=== PATIENT | male | born 1960 | race Caucasian/White ===

== ENCOUNTER → 2017-08-21 09:55 | Outpatient (CLI) | payer OTHER, SELFPAY ==
[2017-08-21 12:22] LABS: Anion Gap 9 (5-15); BUN 10 mg/dL (7-18); BUN/Creat Ratio 9.8 RATIO (10-20); Calcium,Total 8.9 mg/dL (8.5-10.1); Chloride 103 mmol/L (98-107); Cholesterol 179 mg/dL (200); Creatinine, Serum 1.02 mg/dL (0.70-1.30); EST Glomerular Filtration Rate 80 mL/min (>60); Est Glom Filt Rate - Afr Amer 97 mL/min (>60); Glucose 82 mg/dL (74-106); High Density Lipoprotein 42 mg/dL; Potassium 3.9 mmol/L (3.5-5.1); Sodium Level 136 mmol/L (136-145); Triglycerides 108 mg/dL; Very Low Density Lipoprotein 22 mg/dL (5-40)
[2017-08-21 13:03] LABS: HIV - WCH Non-Reactive (Nonreactive); Vitamin D,25 Hydroxy 24.3 ng/mL (29.95-100.01)
[2017-08-21 14:03] LABS: Neisserai gonorrhoeae by PCR Negative (Negative); Probe Check PASS; Sample Adequacy Control PASS; Specimen Processing Control PASS
== END ==
PROVIDERS: Family Provider Family Medicine; PCP Family Medicine; Visit Provider Family Medicine
DX: Z00.00 Encounter for general adult medical examination without abnormal findings (principal); Z20.2 Contact with and (suspected) exposure to infections with a predominantly sexual mode of transmission; E55.9 Vitamin D deficiency, unspecified
CPT/HCPCS: 36415; 80048; 80061; 82306; 86703; 87591

== ENCOUNTER → 2018-06-28 08:42 | Outpatient (CLI) | payer OTHER, SELFPAY ==
[2018-06-28 09:55] LABS: ALB/GLOB Ratio 1.2 RATIO (0.9-2.4); AST(SGOT) 15 U/L (15-37); Alanine Aminotransfer ALT/SGPT 26 U/L (16-61); Alkaline Phosphatase 70 U/L (45-117); Anion Gap 5 (5-15); BUN 12 mg/dL (7-18); BUN/Creat Ratio 11.4 RATIO (10-20); Chloride 106 mmol/L (98-107); Cholesterol 196 mg/dL (200); Creatinine, Serum 1.05 mg/dL (0.70-1.30); EST Glomerular Filtration Rate 78 mL/min (>60); Est Glom Filt Rate - Afr Amer 94 mL/min (>60); Globulin 3.3 g/dL (2.2-4.2); Glucose 96 mg/dL (74-106); High Density Lipoprotein 43 mg/dL; Potassium 4.2 mmol/L (3.5-5.1); Protein, Total 7.3 g/dL (6.4-8.2); Sodium Level 140 mmol/L (136-145); Triglycerides 97 mg/dL; Very Low Density Lipoprotein 19 mg/dL (5-40)
[2018-06-29 11:15] LABS: Vitamin D,25 Hydroxy 36.8 ng/mL (29.95-100.01)
== END ==
PROVIDERS: Family Provider Family Medicine; PCP Family Medicine; Referring Provider Family Medicine; Visit Provider Family Medicine
DX: Z00.00 Encounter for general adult medical examination without abnormal findings (principal); E55.9 Vitamin D deficiency, unspecified
CPT/HCPCS: 36415; 80053; 80061; 82306

== ENCOUNTER → 2018-10-23 | Outpatient (CLI) | payer OTHER, SELFPAY ==
--- NOTE | 2018-10-23 06:55 | CT_ITS ---
STUDY: CT ABDOMEN AND PELVIS WITH CONTRAST REASON FOR EXAM: Male, 57 years old. Umbilical hernia. Mass in the mid abdomen. RADIATION DOSAGE (If Supplied By Facility): CTDIvol = ( 15.83 ) mGy, DLP = ( 1075.87 ) mGycm TECHNIQUE: Transaxial images were obtained from the dome of the diaphragm to the symphysis pubis with oral contrast. 100 IV/Oral Isovue 300 was administered. Sagittal and coronal images were reconstructed. Individualized dose optimization techniques were used for this CT. COMPARISON: None. FINDINGS: The visualized lung bases are unremarkable. The visualized portions of the heart are within normal limits. The liver is normal in size and contour. There are scattered small hypodensities, the largest measuring 4 mm diameter thought to represent small cysts. There is no enhancing mass. Normal gallbladder and extrahepatic biliary system. Without splenomegaly without mass. Normal pancreas. Normal bilateral adrenal glands. Normal right kidney. Normal left kidney. Normal bilateral ureters. Normal visualized stomach. Normal small intestine. Normal colon. The appendix is visualized and appears normal. Minimal atherosclerotic changes of the abdominal aorta. Normal inferior vena cava. Normal retroperitoneum. Normal urinary bladder. Normal prostate. No pelvic adenopathy. No free air or free fluid is seen within the peritoneal cavity. Normal abdominal wall. There is no visualized hernia. There is no mass in the soft tissues. There are diffuse degenerative changes of the visualized lumbar spine. CT/Abdomen/Pelvis WITH Contrast IMPRESSION: 1. No visualized hernia or mass. 2. Small hepatic cysts. 3. Atherosclerotic changes of the abdominal aorta. 4. Degenerative changes of the lumbar spine. Electronically Signed: Toni Anne DO at 16:53 EDT Tel [phone], Service support ,
== END | disposition home or self-care (01) ==
LOC: CT 06:54
PROVIDERS: Family Provider Family Medicine; PCP Family Medicine; Referring Provider Family Medicine; Visit Provider Family Medicine
DX: K42.9 Umbilical hernia without obstruction or gangrene (principal)
CPT/HCPCS: 74177; Q9967

== ENCOUNTER 2020-09-13 07:24 | Emergency (ER) | payer OTHER, SELFPAY ==
[2020-09-13 07:25] VITALS: BP 168/85; PULSE 77; RESP 16; TEMP 36.4; O2SAT 99; BMI 30.1
--- NOTE | 2020-09-13 07:34 | RAD_ITS ---
STUDY: X-RAY - LEFT WRIST REASON FOR EXAM: Male, 59 years old. pain TECHNIQUE: view(s) of the wrist were obtained. COMPARISON: None. FINDINGS: Normal visualized distal radius and ulna. Normal radiocarpal articulation. Normal distal radioulnar articulation. Normal carpal bones. Normal carpal articulations. Normal carpometacarpal articulation of the thumb. Normal second through fifth carpometacarpal articulations. Normal visualized metacarpal bones. The soft tissue structures are unremarkable. RAD/Wrist min 3 Views IMPRESSION: Normal x-ray examination of the wrist. Electronically Signed: Corazon Vivas, at 8:03 EDT Tel , Service support ,
--- NOTE | 2020-09-13 07:35 | EX.ED.UPPERE ---
HPI History of Present Illness Chief Complaint: Upper Extremity Injury Informant: patient Onset/Context/Timing Onset: Days Context: Gradual Onset Timing: Continuous Quality of Pain: Dull and Throbbing Current Severity: Moderate Maximum Severity: Moderate Associated Symptoms Associated Symptoms: Negative for Parasthesia, Weakness and Loss of Funtion Narrative Narrative: Patient is a 59-year-old male takes no daily medications who presents to the emergency department with atraumatic left wrist pain. The patient states that he was doing a lot of work around his house this weekend. He states he went to work yesterday. He states by this morning, he woke, and his wrist felt warm. He states that no matter which when he moved it, he was having pain. He states is never anything like this before. He cannot recall any definitive trauma. He denies any numbness or tingling. He states when he tries to make a full fist, he gets pressure in the wrist. Patient is right-hand dominant. PFSH PFSH Home Medications hydrocodone-acetaminophen 1 tab PO Q6H PRN PRN 3 Days #10 tablet 09/13/20 [Rx Last Taken Unknown] methylprednisolone 4 mg PO UD #1 box 09/13/20 [Rx Last Taken Unknown] Allergy/AdvReac Type Severity Reaction Status Date / Time Penicillins [PCN] Allergy Rash Verified 09/13/20 07:25 Social History Smoking Status: Current every day smoker tobacco type: cigarettes ROS ROS ED Constitutional Constitutional ED: Denies chills or fever(s) Eyes Eyes: Denies blurry vision or change in vision ENT ENT ED: Denies ear pain or sore throat Cardiovascular Cardiovascular: Denies chest pain or palpitations Respiratory/Chest Respiratory/Chest: Denies cough, dyspnea or dyspnea on exertion Gastrointestinal Gastrointestinal: Denies abdominal pain, nausea or vomiting Genitourinary Genitourinary ED: Denies dysuria or urinary frequency Musculoskeletal Musculoskeletal: Denies arthralgias, back pain, myalgias or neck pain Integumentary Denies rash Neurologic Neurologic: Denies headache(s) or paresthesias Psychiatric Psychiatric: Denies anxiety or depression Endocrine Endocrinology: Denies polydipsia or polyuria Allergic/Immunologic Allergic/Immunologic ED: Denies urticaria EXAM Physical Exam Const Vital Signs: 09/13/20 07:25 Temperature 97.5 F L Temperature Source Temporal Pulse Rate 77 Respiratory Rate 16 Blood Pressure 168/85 H Blood Pressure Mean 112 Pulse Ox 99 Oxygen Delivery Method Room Air Positive well nourished and well developed General Appearance ED: well developed HEENT Reports normocephalic, head/scalp atraumatic and moist mucous membranes Eyes PERRL and EOMs intact bilaterally Neck no lymphadenopathy and supple General: Negative for tenderness Chest Wall inspection of chest normal Resp normal respiratory effort and clear to auscultation bilaterally Cardio regular rate, regular rhythm and no murmurs GI normal to inspection, nondistended, normoactive bowel sounds Palpation: Negative for tender, guarding or rebound tenderness present Back/Spine no CVA tenderness Cervical Spine: Negative for cervical spine tenderness Thoracic Spine / Upper Back: Negative for thoracic spinal tenderness Extremity normal to inspection General Extremety ED: Negative for tenderness Right Upper Extremity: wrist Left Upper Extremity: wrist palpation (Mild tenderness on the dorsum. No significant warmth. No pain with small arc range of motion. No gross laxity.) Neuro oriented x3 and CN's II-XII intact bilaterally Neuro Narrative: No focal deficits appreciated. Sensorium / Orientation: alert Psych mental status grossly normal Skin no rashes or lesions noted, no wounds and skin turgor normal MDM MDM MDM Narrative Medical decision making narrative: Clinically, I do feel the patient may have gout of the wrist. There is mild erythema without edema. There is no pain with small arc range of motion. He had no trauma. He has no history of immunosuppression. I do not feel that this is a septic arthritis. I did obtain plain films which were reviewed by both myself and the radiologist. These are unremarkable. The patient was placed in a wrist splint for comfort. I will start him on prednisone and a short course of analgesics. He will be given outpatient orthopedic follow-up. He will be discharged home. Impression 1. Acute gout left wrist Discharge Plan Triage Chief Complaint: Upper Extremity Injury ED Provider: Vu Steen Dx/Rx/DC Orders Instructions: ED Gout Prescriptions: New hydrocodone-acetaminophen [hydrocodone-acetaminophen] 1 TABLET tablet 1 tab PO Q6H PRN PRN (Reason: Pain) 3 Days Qty: 10 RF: 0 methylprednisolone [methylprednisolone] 4 MG tablets,dose pack 4 mg PO UD Qty: 1 RF: 0 Primary Care Provider: Don Price Referrals: Foreign Fonseca DO [STAFF PHYSICIAN] - 3-5 Days Don Price MD [Primary Care Provider] -
--- NOTE | 2020-09-13 08:25 | ED.RN ---
PT REMOVED WRIST SPLINT BEFORE LEAVING.
== END 2020-09-13 08:27 | disposition home or self-care (01) ==
PROVIDERS: Emergency Provider Emergency Medicine; PCP Family Medicine
DX: M10.9 Gout, unspecified (principal); F17.210 Nicotine dependence, cigarettes, uncomplicated
CPT/HCPCS: 73110; 99283

== ENCOUNTER → 2020-09-23 09:13 | Outpatient (CLI) | payer OTHER, SELFPAY ==
[2020-09-13 07:25] VITALS: BMI 30.1
[2020-09-23 10:29] LABS: Vitamin D,25 Hydroxy 70.3 ng/mL
[2020-09-23 10:46] LABS: Anion Gap 7 (5-15); BUN 16 mg/dL (7-18); BUN/Creat Ratio 14.7 RATIO (10-20); Calcium,Total 9.6 mg/dL (8.5-10.1); Chloride 106 mmol/L (98-107); Cholesterol 222 mg/dL (200); Creatinine, Serum 1.09 mg/dL (0.70-1.30); EST Glomerular Filtration Rate 74 mL/min (>60); Est Glom Filt Rate - Afr Amer 89 mL/min (>60); Glucose 101 mg/dL (74-106); High Density Lipoprotein 39 mg/dL; PSA,Total - Annual Screen 0.97 ng/mL (0.00-4.00); Potassium 4.5 mmol/L (3.5-5.1); Sodium Level 139 mmol/L (136-145); Thyroid Stim Hormone (TSH) 1.98 uIU/mL (0.358-3.74); Triglycerides 138 mg/dL; Uric Acid 9.2 mg/dL (3.5-7.2); Very Low Density Lipoprotein 28 mg/dL (5-40)
== END ==
PROVIDERS: PCP Family Medicine; Visit Provider Family Medicine
DX: Z00.00 Encounter for general adult medical examination without abnormal findings (principal); M25.532 Pain in left wrist
CPT/HCPCS: 36415; 80048; 80061; 82306; 84153; 84403; 84443; 84550; G0103

== ENCOUNTER 2021-04-21 10:14 | Outpatient (CLI) | payer OTHER, SELFPAY ==
--- NOTE | 2021-04-21 10:17 | RAD_ITS ---
STUDY: XR Knee Complete 4 Views or More 04/21/2021 4:58 PM REASON FOR EXAM: Male, 60 years old. PAIN TECHNIQUE: XR Knee Complete 4 Views or More COMPARISON: None. FINDINGS: Normal visualized distal femur. Normal visualized proximal tibia and fibula. Normal proximal tibiofibular articulation. There is calcification in the joint space which may signify calcium hydroxyapatite deposition disease. Normal medial femorotibial compartment. Normal lateral femorotibial compartment. Normal patellofemoral articulation. The soft tissue structures are unremarkable. RAD/Knee 4 or More Views IMPRESSION: There is calcification in the joint space which may signify calcium hydroxyapatite deposition disease. Electronically Signed: Noman Alexis MD at 16:59 EST ,
[2021-04-21 12:31] LABS: Erythrocyte Sedimentation Rate 12 mm/hr (0-20)
[2021-04-21 12:43] LABS: CRP < 2.90 mg/L (0.0-3.0); Rheumatoid Factor < 10.0 IU/mL (<15)
[2021-04-21 18:55] LABS: CRP, High Sensitivity Cardiac 1.14 mg/L
[2021-04-25 14:20] LABS: ANTINUCLEAR ANTIBODIES DIRECT Positive (Negative)
== END 2021-04-21 23:59 | disposition short-term general hospital (02) ==
LOC: MTLAB 10:16
PROVIDERS: PCP Family Medicine; Referring Provider Family Medicine; Visit Provider Family Medicine
DX: M25.561 Pain in right knee (principal); M79.89 Other specified soft tissue disorders
CPT/HCPCS: 36415; 73564; 85652; 86038; 86140; 86141; 86431

== ENCOUNTER 2021-07-07 09:42 | Outpatient (CLI) | payer OTHER, SELFPAY ==
[2021-07-07 10:53] LABS: EXAGEN MAILED SPECIMEN
[2021-07-07 11:48] LABS: Absolute Lymphocyte Count 1.37 X10^3/uL (0.83-4.51); Absolute Neutrophil Count 4.9 X10^3/uL (2.0-7.7); Basophil# 0.06 X10^3/uL; Basophil% 0.8 % (0-1); Eosinophil# 0.27 X10^3/uL; Eosinophils% 3.8 % (0-5); Hematocrit 46.7 % (40-54); Hemoglobin 15.4 g/dL (13.0-16.5); Lymphocyte # 1.37 X10^3/ul (0.83-4.51); Lymphocyte % 19.1 % (19-41); Mean Corpuscular Hgb 30.4 pg (27.0-32.0); Mean Corpuscular Volume 92.3 fL (80-94); Mean Platelet Vol. 10.4 fl (6.2-12.0); Monocyte# 0.55 X10^3/uL; Monocyte% 7.7 % (0-10); NRBC Flagged by Analyzer 0 % (0-5); Neutrophil # 4.88 X10^3/uL (2.7-7.7); Neutrophil % 67.9 % (47-70); Platelet Count 203 K/mm3 (150-450); RBC Distribution Width CV 12.8 % (11.6-14.6); RBC Distribution Width SD 42.6 fl (35.1-43.9); Red Blood Count 5.06 M/mm3 (4.6-6.2); White Blood Count 7.2 K/mm3 (4.4-11.0)
[2021-07-07 11:56] LABS: Prothrombin Time (Protime)PT. 12.7 SECONDS (11.7-14.9)
[2021-07-07 11:57] LABS: Partial Thromboplast Time 30.2 Seconds (24.1-36.2)
[2021-07-07 12:00] LABS: Color, Urine Yellow (Yellow); Glucose, Dipstick Normal (Normal); Ketone-Dipstick Negative (Negative); Leukocyte Esterase-Dipstick Negative /ul (Negative); Nitrite-Dipstick Negative (Negative); Occult Blood-Urine Negative /ul (Negative); Protein-Dipstick Negative (Negative); Urine Bilirubin Dipstick Negative (Negative); Urine Clarity Clear (Clear); Urine Urobilinogen Normal (Normal); Urine pH 6.5 (5.0 - 8.0)
[2021-07-07 12:02] LABS: ALB/GLOB Ratio 1.2 RATIO (0.9-2.4); AST(SGOT) 24 U/L (15-37); Alanine Aminotransfer ALT/SGPT 48 U/L (16-61); Alkaline Phosphatase 70 U/L (45-117); Anion Gap 4 (5-15); BUN 17 mg/dL (7-18); Calcium,Total 8.9 mg/dL (8.5-10.1); Chloride 107 mmol/L (98-107); Creatinine, Serum 1.06 mg/dL (0.70-1.30); EST Glomerular Filtration Rate 76 mL/min (>60); Est Glom Filt Rate - Afr Amer 92 mL/min (>60); Globulin 3.3 g/dL (2.2-4.2); Glucose 94 mg/dL (74-106); Potassium 4.3 mmol/L (3.5-5.1); Protein, Total 7.3 g/dL (6.4-8.2); Sodium Level 138 mmol/L (136-145); Uric Acid 9.4 mg/dL (3.5-7.2)
[2021-07-07 12:27] LABS: Protein, Urine (Random) < 6.0 mg/dL (<11.9)
[2021-07-07 12:43] LABS: Hepatitis B Surface Antibody Non-Reactive; Hepatitis B Surface Antigen Non-Reactive (Nonreactive); Hepatitis C Antibody Non-Reactive (Nonreactive)
[2021-07-09 13:07] LABS: Hexagonal Phase Phospholipid 6 sec (0-11); Thrombin Time 17.6 sec (0.0-23.0)
== END 2021-07-07 23:59 | disposition home or self-care (01) ==
LOC: MTLAB 09:44
PROVIDERS: PCP Family Medicine; Referring Provider Internal Medicine Rheumatology; Visit Provider Internal Medicine Rheumatology
DX: M06.4 Inflammatory polyarthropathy (principal); R76.8 Other specified abnormal immunological findings in serum; M18.0 Bilateral primary osteoarthritis of first carpometacarpal joints; M17.0 Bilateral primary osteoarthritis of knee; M47.892 Other spondylosis, cervical region; M51.37 Other intervertebral disc degeneration, lumbosacral region
CPT/HCPCS: 36415; 80053; 81002; 82570; 84156; 84550; 85025; 85598; 85610; 85670; 85730; 86706; 86803; 87340

== ENCOUNTER → 2021-10-05 | Outpatient (CLI) | payer OTHER, SELFPAY ==
[2021-10-05 18:11] LABS: Absolute Neutrophil Count 5.9 X10^3/uL (2.0-7.7); Basophil# 0.07 X10^3/uL; Basophil% 0.8 % (0-1); Eosinophil# 0.45 X10^3/uL; Eosinophils% 4.9 % (0-5); Hematocrit 42.5 % (40-54); Hemoglobin 14.4 g/dL (13.0-16.5); Lymphocyte % 20.7 % (19-41); Mean Corp Hgb Conc 33.9 g/dL (32-36); Mean Corpuscular Hgb 30.8 pg (27.0-32.0); Mean Platelet Vol. 11.2 fl (6.2-12.0); Monocyte% 7.6 % (0-10); NRBC Flagged by Analyzer 0 % (0-5); Neutrophil # 5.93 X10^3/uL (2.7-7.7); Neutrophil % 64.8 % (47-70); Platelet Count 201 K/mm3 (150-450); RBC Distribution Width CV 13.2 % (11.6-14.6); RBC Distribution Width SD 43.8 fl (35.1-43.9); Red Blood Count 4.67 M/mm3 (4.6-6.2); White Blood Count 9.2 K/mm3 (4.4-11.0)
[2021-10-05 18:36] LABS: ALB/GLOB Ratio 1.4 RATIO (0.9-2.4); AST(SGOT) 25 U/L (15-37); Alanine Aminotransfer ALT/SGPT 44 U/L (16-61); Albumin, Serum 4.1 g/dL (3.2-5.0); Alkaline Phosphatase 71 U/L (45-117); Anion Gap 4 (5-15); BUN 19 mg/dL (7-18); BUN/Creat Ratio 17.3 RATIO (10-20); Calcium,Total 9.3 mg/dL (8.5-10.1); Chloride 107 mmol/L (98-107); EST Glomerular Filtration Rate 73 mL/min (>60); Est Glom Filt Rate - Afr Amer 88 mL/min (>60); Glucose 78 mg/dL (74-106); Potassium 4.1 mmol/L (3.5-5.1); Protein, Total 7.1 g/dL (6.4-8.2); Sodium Level 138 mmol/L (136-145)
== END | disposition home or self-care (01) ==
LOC: MTLAB 15:48
PROVIDERS: PCP Family Medicine; Referring Provider Internal Medicine Rheumatology; Visit Provider Internal Medicine Rheumatology
DX: M06.4 Inflammatory polyarthropathy (principal); Z79.899 Other long term (current) drug therapy; R76.8 Other specified abnormal immunological findings in serum; M18.0 Bilateral primary osteoarthritis of first carpometacarpal joints; M17.0 Bilateral primary osteoarthritis of knee; M47.892 Other spondylosis, cervical region; M51.37 Other intervertebral disc degeneration, lumbosacral region
CPT/HCPCS: 36415; 80053; 85025

== ENCOUNTER 2022-02-27 08:29 | Outpatient (CLI) | payer OTHER, SELFPAY ==
--- NOTE | 2022-02-27 08:55 | RAD_ITS ---
STUDY: X-RAY - LUMBAR SPINE REASON FOR EXAM: Male, 61 years old. BACK PAIN TECHNIQUE: 5 view(s) of the lumbar spine were obtained including oblique views. COMPARISON: None FINDINGS: There is straightening of the normal lumbar lordosis. There is no substantial scoliosis. There is a normal alignment of the vertebrae. There is multilevel endplate spondylosis of the lumbar vertebrae. There is multi-level degenerative disc disease with multi-level disc space narrowing. The soft tissue structures are unremarkable. RAD/L/S Spine Min 4 Views IMPRESSION: Degenerative changes of the spine, as detailed above. Straightening of the normal lumbar lordosis. Electronically Signed: Mateo Salinas MD at 11:10 EST ,
[2022-02-27 10:24] LABS: Erythrocyte Sedimentation Rate 9 mm/hr (0-20)
[2022-02-27 10:27] LABS: Anion Gap 8 (5-15); BUN 13 mg/dL (7-18); BUN/Creat Ratio 12.3 RATIO (10-20); Calcium,Total 9.1 mg/dL (8.5-10.1); Chloride 104 mmol/L (98-107); Cholesterol 229 mg/dL (200); Creatinine, Serum 1.06 mg/dL (0.70-1.30); EST Glomerular Filtration Rate 76 mL/min (>60); Est Glom Filt Rate - Afr Amer 92 mL/min (>60); Glucose 89 mg/dL (74-106); High Density Lipoprotein 33 mg/dL; Potassium 4.2 mmol/L (3.5-5.1); Sodium Level 141 mmol/L (136-145); Triglycerides 169 mg/dL; Very Low Density Lipoprotein 34 mg/dL (5-40)
[2022-03-02 13:27] LABS: ANTINUCLEAR ANTIBODIES DIRECT Positive (Negative)
== END 2022-02-27 23:59 | disposition home or self-care (01) ==
LOC: MTLAB 08:31
PROVIDERS: PCP Family Medicine; Referring Provider Family Medicine; Visit Provider Family Medicine
DX: M54.9 Dorsalgia, unspecified (principal); M47.816 Spondylosis without myelopathy or radiculopathy, lumbar region; M51.36 Other intervertebral disc degeneration, lumbar region; I10 Essential (primary) hypertension; M19.90 Unspecified osteoarthritis, unspecified site
CPT/HCPCS: 36415; 72110; 80048; 80061; 85652; 86038

== ENCOUNTER → 2022-04-27 | Outpatient (CLI) | payer OTHER, SELFPAY ==
--- NOTE | 2022-04-27 17:52 | MRI_ITS ---
INDICATION: BACK PAIN EXAMINATION: MRI - MR Spine Lumbar W/O Contrast TECHNIQUE: Multiplanar and multisequence MR images of the lumbar spine. IV Contrast Dosage and Agent: None. COMPARISON: Radiographs 02/27/2022. CT abdomen pelvis 10/23/2018 FINDINGS: No fracture or acute osseous abnormality. Mild endplate degenerative signal changes and irregularity most prominent at L2-3 and L5-S1. Conus terminates at the level of the mid L1 vertebral body with normal contour and signal. Normal arborization of the cauda equina. At L1-2, mild facet degeneration causes no significant narrowing. At L2-3, diffuse disc bulge and mild facet degeneration with degenerative buckling of the ligamentum flavum causes moderate narrowing of both subarticular zones with disc and ligamentum flavum abutting the traversing bilateral L3 nerve roots. Only mild narrowing of the foramina. At L3-4, small disc bulge and moderate facet degeneration causes only mild narrowing. At L4-5, diffuse disc bulge with small central protrusion and moderate bilateral facet degeneration with degenerative buckling of the ligamentum flavum causes moderate narrowing of both subarticular zones. Traversing bilateral L5 nerve roots are abutted and possibly compressed by disc and ligamentum flavum in the subarticular zones. Disc and osteophyte extend into and cause moderate right and mild left foraminal narrowing, abutting but not compressing the exiting right L4 nerve root in the right foramen. At L5-S1, disc and osteophyte extend into and mildly narrow the bilateral foramina, abutting but not compressing the exiting left L5 nerve root. Only mild narrowing of the spinal canal. The paraspinal soft tissues are unremarkable. MRI/Spine Lumbar (Routine) IMPRESSION: Degenerative changes. Most prominent at L2-3 and L4-5. Disc and ligamentum flavum abut and may compress the traversing bilateral L5 nerve roots in the subarticular zones of L4-5. Less prominent mass effect upon nerve roots at other levels as listed above. Electronically Signed: Simeon Wallis MD at 3:46 EST Reading Location ID and State: [facility] Tel , Service support ,
== END | disposition home or self-care (01) ==
LOC: MRI 17:35
PROVIDERS: PCP Family Medicine; Visit Provider Family Medicine
DX: M54.9 Dorsalgia, unspecified (principal)
CPT/HCPCS: 72148

== ENCOUNTER → 2022-05-30 | Outpatient (CLI) | payer OTHER, SELFPAY ==
--- NOTE | 2022-05-30 14:50 | RAD_ITS ---
EXAM: XR LEFT KNEE COMPLETE, 4 OR MORE VIEWS CLINICAL INDICATION: knee pain -- bilat pain but order states left knee to xray in notes TECHNIQUE: Four or more views of the left knee. This report was created using [employer] report generation technology. COMPARISON: None. Views of the contralateral right knee from April 21, 2021. FINDINGS: BONES/JOINTS: Unremarkable. No acute fracture. No subluxation. Normal alignment. Preservation of the joint space. No sclerotic or destructive changes observed. There is a calcification in the lateral meniscus and trace calcification in the medial meniscus on the frontal view. SOFT TISSUES: Unremarkable. No soft tissue swelling or gas. No radiopaque foreign body. RAD/Knee 4 or More Views IMPRESSION: Meniscal calcifications in the left knee, mild, greater laterally. Presumed calcium deposition condition. There were similar meniscal calcifications noted on prior right knee images. Electronically Signed: Hetal Hightower MD at 8:11 EST ,
== END | disposition home or self-care (01) ==
PROVIDERS: PCP Family Medicine; Visit Provider Family Medicine
DX: M25.561 Pain in right knee (principal); M25.562 Pain in left knee
CPT/HCPCS: 73564

== ENCOUNTER → 2022-06-13 | Outpatient (CLI) | payer OTHER, SELFPAY ==
[2022-06-13 10:30] LABS: Anion Gap 8 (5-15); BUN 17 mg/dL (7-18); BUN/Creat Ratio 15.5 RATIO (10-20); Calcium,Total 9.3 mg/dL (8.5-10.1); Chloride 104 mmol/L (98-107); Cholesterol 207 mg/dL (200); EST Glomerular Filtration Rate 73 mL/min (>60); Est Glom Filt Rate - Afr Amer 88 mL/min (>60); Glucose 96 mg/dL (74-106); High Density Lipoprotein 40 mg/dL; Potassium 4.2 mmol/L (3.5-5.1); Sodium Level 138 mmol/L (136-145); Triglycerides 141 mg/dL; Very Low Density Lipoprotein 28 mg/dL (5-40)
== END | disposition home or self-care (01) ==
LOC: MTLAB 07:01
PROVIDERS: PCP Family Medicine; Visit Provider Family Medicine
DX: I10 Essential (primary) hypertension (principal)
CPT/HCPCS: 36415; 80048; 80061

== ENCOUNTER → 2022-07-04 | Outpatient (CLI) | payer OTHER, SELFPAY ==
[2022-07-04 14:48] LABS: Hemoglobin 14.7 g/dL (13.0-16.5); Mean Corp Hgb Conc 34.2 g/dL (32-36); Mean Corpuscular Hgb 31.2 pg (27.0-32.0); Mean Corpuscular Volume 91.3 fL (80-94); Mean Platelet Vol. 10.8 fl (6.2-12.0); Platelet Count 236 K/mm3 (150-450); RBC Distribution Width CV 12.9 % (11.6-14.6); RBC Distribution Width SD 43.3 fl (35.1-43.9); Red Blood Count 4.71 M/mm3 (4.6-6.2); White Blood Count 6.4 K/mm3 (4.4-11.0)
[2022-07-04 15:20] LABS: Anion Gap 2 (5-15); BUN 14 mg/dL (7-18); Calcium,Total 9.2 mg/dL (8.5-10.1); Chloride 109 mmol/L (98-107); Creatinine, Serum 1.08 mg/dL (0.70-1.30); EST Glomerular Filtration Rate 74 mL/min (>60); Est Glom Filt Rate - Afr Amer 90 mL/min (>60); Glucose 108 mg/dL (74-106); Potassium 3.6 mmol/L (3.5-5.1); Sodium Level 137 mmol/L (136-145)
== END | disposition home or self-care (01) ==
PROVIDERS: PCP Family Medicine; Referring Provider Physician Assistant; Visit Provider Physician Assistant
DX: Z01.818 Encounter for other preprocedural examination (principal); Z01.810 Encounter for preprocedural cardiovascular examination
CPT/HCPCS: 36415; 80048; 85027; 93005

== ENCOUNTER → 2022-08-28 | Outpatient (CLI) | payer OTHER, SELFPAY ==
[2022-08-28 15:10] LABS: Hemoglobin 15.6 g/dL (13.0-16.5); Mean Corp Hgb Conc 33.2 g/dL (32-36); Mean Corpuscular Volume 93.3 fL (80-94); Mean Platelet Vol. 10.8 fl (6.2-12.0); Platelet Count 195 K/mm3 (150-450); RBC Distribution Width CV 12.9 % (11.6-14.6); RBC Distribution Width SD 44.1 fl (35.1-43.9); Red Blood Count 5.04 M/mm3 (4.6-6.2); White Blood Count 9.7 K/mm3 (4.4-11.0)
[2022-08-28 15:30] LABS: Anion Gap 2 (5-15); BUN 16 mg/dL (7-18); BUN/Creat Ratio 15.2 RATIO (10-20); Calcium,Total 9.5 mg/dL (8.5-10.1); Chloride 108 mmol/L (98-107); Creatinine, Serum 1.05 mg/dL (0.70-1.30); EST Glomerular Filtration Rate 76 mL/min (>60); Est Glom Filt Rate - Afr Amer 92 mL/min (>60); Glucose 87 mg/dL (74-106); Potassium 4.7 mmol/L (3.5-5.1); Sodium Level 138 mmol/L (136-145)
== END | disposition home or self-care (01) ==
LOC: MTLAB 11:23
PROVIDERS: PCP Family Medicine; Referring Provider Physician Assistant; Visit Provider Physician Assistant
DX: Z01.818 Encounter for other preprocedural examination (principal); Z01.810 Encounter for preprocedural cardiovascular examination
CPT/HCPCS: 36415; 80048; 83036; 85027

== ENCOUNTER → 2023-02-28 | Outpatient (CLI) | payer OTHER, SELFPAY ==
--- NOTE | 2023-02-28 12:59 | RAD_ITS ---
EXAM: XR LEFT SHOULDER COMPLETE, 2 OR MORE VIEWS CLINICAL INDICATION: ARTHRALGIA TECHNIQUE: Two or more views of the left shoulder. COMPARISON: No relevant prior studies available. FINDINGS: BONES/JOINTS: There is hypertrophy of the acromioclavicular joint. No acute fracture. No subluxation. Normal alignment. No sclerotic or destructive changes observed. SOFT TISSUES: Unremarkable. No soft tissue swelling or gas. No radiopaque foreign body. RAD/Shoulder min 2 Views IMPRESSION: Degenerative changes with hypertrophy of the acromioclavicular joint. There are no acute osseous abnormalities. Electronically Signed: Fredy Slater MD at 19:56 EST ,
--- NOTE | 2023-02-28 12:59 | RAD_ITS ---
EXAM: XR RIGHT SHOULDER COMPLETE, 2 OR MORE VIEWS CLINICAL INDICATION: ARTHRALGIA TECHNIQUE: Two or more views of the right shoulder. COMPARISON: No relevant prior studies available. FINDINGS: BONES/JOINTS: There is hypertrophy with narrowing of the acromioclavicular joint. No acute fracture. No subluxation. Normal alignment. No sclerotic or destructive changes observed. SOFT TISSUES: Unremarkable. No soft tissue swelling or gas. No radiopaque foreign body. RAD/Shoulder min 2 Views IMPRESSION: Degenerative changes in the acromioclavicular joint. There are no acute osseous abnormalities. Electronically Signed: Fredy Slater MD at 19:57 EST ,
--- NOTE | 2023-02-28 13:00 | RAD_ITS ---
EXAM: XR RIGHT FOOT, 2 VIEWS CLINICAL INDICATION: ARTHRALGIA TECHNIQUE: Frontal and lateral views of the right foot. COMPARISON: No relevant prior studies available. FINDINGS: BONES/JOINTS: There is a small calcaneal spur. No acute fracture. No subluxation. Normal alignment. Preservation of the joint space. No sclerotic or destructive changes observed. SOFT TISSUES: Unremarkable. No soft tissue swelling or gas. No radiopaque foreign body. RAD/Foot 2 Views IMPRESSION: No acute findings in the right foot. Electronically Signed: Fredy Slater MD at 23:18 EST ,
--- NOTE | 2023-02-28 13:00 | RAD_ITS ---
EXAM: XR LEFT FOOT, 2 VIEWS CLINICAL INDICATION: ARTHRALGIA TECHNIQUE: Frontal and lateral views of the left foot. COMPARISON: No relevant prior studies available. FINDINGS: BONES/JOINTS: There is a small calcaneal spur. No acute fracture. No subluxation. Normal alignment. Preservation of the joint space. No sclerotic or destructive changes observed. SOFT TISSUES: Unremarkable. No soft tissue swelling or gas. No radiopaque foreign body. RAD/Foot 2 Views IMPRESSION: No acute findings in the left foot. Electronically Signed: Fredy Slater MD at 22:33 EST ,
--- NOTE | 2023-02-28 13:01 | RAD_ITS ---
EXAM: XR RIGHT HAND COMPLETE, 3 OR MORE VIEWS CLINICAL INDICATION: ARTHRALGIA TECHNIQUE: Frontal, lateral and oblique views of the right hand. COMPARISON: No relevant prior studies available. FINDINGS: BONES/JOINTS: Unremarkable. No acute fracture. No subluxation. Normal alignment. Preservation of the joint space. No sclerotic or destructive changes observed. SOFT TISSUES: Unremarkable. No soft tissue swelling or gas. No radiopaque foreign body. RAD/Hand Min 3 Views IMPRESSION: Negative right hand x-rays. Electronically Signed: Fredy Slater MD at 23:16 EST ,
--- NOTE | 2023-02-28 13:01 | RAD_ITS ---
EXAM: XR LEFT HAND, 2 VIEWS CLINICAL INDICATION: ARTHRALGIA TECHNIQUE: Frontal and lateral views of the left hand. COMPARISON: No relevant prior studies available. FINDINGS: BONES/JOINTS: Unremarkable. No acute fracture. No subluxation. Normal alignment. Preservation of the joint space. No sclerotic or destructive changes observed. SOFT TISSUES: Unremarkable. No soft tissue swelling or gas. No radiopaque foreign body. RAD/Hand 2 Views IMPRESSION: Negative left hand x-rays. Electronically Signed: Fredy Slater MD at 23:17 EST ,
== END | disposition home or self-care (01) ==
LOC: MTRAD 12:57
PROVIDERS: PCP Family Medicine; Referring Provider Internal Medicine Rheumatology; Visit Provider Internal Medicine Rheumatology
DX: M25.50 Pain in unspecified joint (principal)
CPT/HCPCS: 73030; 73120; 73130; 73620

== ENCOUNTER → 2023-10-07 | Outpatient (CLI) | payer OTHER, SELFPAY ==
[2023-10-07 11:02] LABS: Anion Gap 7 (5-15); BUN 15 mg/dL (7-18); BUN/Creat Ratio 13.2 RATIO (10-20); Calcium,Total 9.1 mg/dL (8.5-10.1); Chloride 107 mmol/L (98-107); Cholesterol 197 mg/dL (200); Creatinine, Serum 1.14 mg/dL (0.70-1.30); EST Glomerular Filtration Rate 69 mL/min (>60); Est Glom Filt Rate - Afr Amer 84 mL/min (>60); Glucose 98 mg/dL (74-106); High Density Lipoprotein 38 mg/dL; Potassium 3.9 mmol/L (3.5-5.1); Sodium Level 138 mmol/L (136-145); Triglycerides 122 mg/dL; Very Low Density Lipoprotein 24 mg/dL (5-40)
== END | disposition home or self-care (01) ==
PROVIDERS: PCP Family Medicine; Referring Provider Family Medicine; Visit Provider Family Medicine
DX: I10 Essential (primary) hypertension (principal)
CPT/HCPCS: 36415; 80048; 80061

== ENCOUNTER → 2024-05-18 | Outpatient (CLI) | payer OTHER, SELFPAY ==
[2024-05-19 06:44] LABS: Anion Gap 6 (5-15); BUN 20 mg/dL (7-18); BUN/Creat Ratio 16.8 RATIO (10-20); Calcium,Total 9.9 mg/dL (8.5-10.1); Chloride 102 mmol/L (98-107); Cholesterol 223 mg/dL (200); Creatinine, Serum 1.19 mg/dL (0.70-1.30); EST Glomerular Filtration Rate 66 mL/min (>60); Est Glom Filt Rate - Afr Amer 80 mL/min (>60); Glucose 93 mg/dL (74-106); High Density Lipoprotein 38 mg/dL; Potassium 4.1 mmol/L (3.5-5.1); Sodium Level 135 mmol/L (136-145); Triglycerides 157 mg/dL; Very Low Density Lipoprotein 31 mg/dL (5-40)
== END | disposition home or self-care (01) ==
LOC: MTLAB 08:19
PROVIDERS: PCP Family Medicine; Referring Provider Family Medicine; Visit Provider Family Medicine
DX: I10 Essential (primary) hypertension (principal)
CPT/HCPCS: 36415; 80048; 80061

== ENCOUNTER → 2024-07-13 | Outpatient (CLI) | payer OTHER, SELFPAY ==
[2024-07-13 20:03] LABS: Uric Acid 8.7 mg/dL (3.5-7.2)
== END | disposition home or self-care (01) ==
LOC: MTLAB 16:25
PROVIDERS: PCP Family Medicine; Referring Provider Family Medicine; Visit Provider Family Medicine
DX: M10.9 Gout, unspecified (principal)
CPT/HCPCS: 36415; 84550

== ENCOUNTER → 2024-07-30 | Outpatient (CLI) | payer OTHER, SELFPAY ==
[2024-07-30 19:08] LABS: Amphetamine Urine NEGATIVE (<1000 ng/mL); Barbiturate Urine NEGATIVE (< 200 ng/mL); Benzodiazepine Urine NEGATIVE (< 200 ng/mL); Buprenorphine Urine NEGATIVE (< 200 ng/mL); Cocaine Urine NEGATIVE (< 300 ng/mL); Fentanyl, Urine NEGATIVE; Methadone Urine NEGATIVE (< 300 ng/mL); Opiates Urine PRESUMPTIVE POSITIVE (< 300 ng/mL); Oxycodone, Urine NEGATIVE (< 100 ng/mL); PCP Urine NEGATIVE (< 25 ng/mL); THC Urine NEGATIVE (< 50 ng/mL)
== END | disposition home or self-care (01) ==
LOC: LAB 17:11
PROVIDERS: PCP Family Medicine; Referring Provider Anesthesiology Pain Medicine; Visit Provider Anesthesiology Pain Medicine
DX: F11.20 Opioid dependence, uncomplicated (principal)
CPT/HCPCS: 80307

== ENCOUNTER → 2024-09-24 | Outpatient (CLI) | payer OTHER, SELFPAY | END | disposition home or self-care (01) | LOC: RAD 14:09 | PROVIDERS: PCP Family Medicine; Referring Provider Anesthesiology Pain Medicine; Visit Provider Anesthesiology Pain Medicine | DX: M47.812 Spondylosis without myelopathy or radiculopathy, cervical region (principal) | CPT/HCPCS: 72040 ==

== ENCOUNTER → 2024-10-02 | Outpatient (CLI) | payer OTHER, SELFPAY ==
[2024-10-02 16:11] LABS: AST(SGOT) 39 U/L (<=37); Alanine Aminotransfer ALT/SGPT 44 U/L (<=46); Albumin, Serum 4.5 g/dL (3.4-4.8); Alkaline Phosphatase 71 U/L (40-129); Anion Gap 12 (5-15); BUN 15 mg/dL (4-19); BUN/Creat Ratio 13.6 RATIO (10-20); Calcium,Total 9.9 mg/dL (7.6-11.0); Carbon Dioxide 24.7 mmol/L (21.0-32.0); Chloride 103 mmol/L (98-108); Cholesterol 196 mg/dL (<=200); Globulin 2.7 g/dL (2.2-4.2); Glucose 87 mg/dL (70-99); Low Density Lipoprotein Calc. 132 mg/dL; Potassium 4.0 mmol/L (3.3-5.1); Triglycerides 155 mg/dL; Very Low Density Lipoprotein 31 mg/dL (5-40); cholesterol:hdl ratio screen 5.94
== END | disposition home or self-care (01) ==
LOC: MTLAB 12:33
PROVIDERS: PCP Family Medicine; Referring Provider Family Medicine; Visit Provider Family Medicine
DX: I10 Essential (primary) hypertension (principal); E78.5 Hyperlipidemia, unspecified; R53.83 Other fatigue
CPT/HCPCS: 36415; 80053; 80061; 83036; 84403; 84443

== ENCOUNTER → 2024-11-06 | Outpatient (CLI) | payer OTHER, SELFPAY ==
--- NOTE | 2024-11-06 18:05 | CT_ITS ---
PROCEDURE: LOW DOSE CT LUNG SCREENING 11/06/2024 REASON FOR EXAM: SMOKER Patient has smoked 1 pack per day for 16 years. TECHNIQUE: LOW DOSE CT LUNG SCREENING Coronal and Sagittal reconstruction series were provided. One or more dose reduction techniques were used (e.g., Automated exposure control, adjustment of the mA and/or kV according to patient size, use of iterative reconstruction technique). REFERENCE LINK: [employer] Lung-RADS RADIATION DOSE SUMMARY: CTDlvol: 3.02 mGy DLP: 113.62 mGycm COMPARISON: None FINDINGS: PULMONARY NODULES: (Only nodules >3mm are reported) Nodules described below are on series 1 unless otherwise specified. Pulmonary Nodules: No suspicious nodules are seen. Hardware:None Lymph Nodes:No suspicious lymph nodes are present. Heart and Vasculature:The heart is nonenlarged. Atherosclerotic plaque formation of the aortic arch. Coronary Artery Calcifications: Present Lungs and Airways: Mild emphysematous changes are present. Pleura:Unremarkable Upper Abdomen:Unremarkable Bones:Degenerative changes of the thoracic spine. CT/Low Dose CT Lung Screening IMPRESSION: No suspicious pulmonary nodule seen. Coronary artery calcification (CAC) is is absent Lung-RADS Category: 2 BENIGN (BASED ON IMAGING FEATURES OR INDOLENT BEHAVIOR). RECOMMEND 12-MONTH SCREENING LDCT. Other Significant Findings: Reading Location: [facility]
--- OUTSIDE RECORDS SUMMARY | 2024-11-06 20:14 | XMS RPT_ITS | CCD ---
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 Don Price Primary Care Provider [phone] Dee, Dr. Ochoa Referring Provider Dr. Gerald Sorensen Attending Provider [phone] Dee FREEDMAN, Dr. Ochoa Primary Care Provider [phone] Dee FREEDMAN, Dr. Ohcoa Attending Provider Dee FREEDMAN, Dr. Ochoa Referring Provider Carlos FREEDMAN, Dr. Weaver Attending Provider Carlos FREEDMAN, Dr. Weaver Referring Provider Dee FREEDMAN, Dr. Ochoa Primary Care Provider Dee FREEDMAN, Dr. Ochoa Attending Provider Dee FREEDMAN, Dr. Ochoa Referring Provider Owen Gonzalez Attending Unavailable Price, Don Primary Care Unavailable Basali, Owen Referring Unavailable Price, Don Primary Care Unavailable Price, Don Referring Unavailable Rpice, Don Attending Unavailable Price, Don Primary Care Unavailable Price, Don Referring Unavailable Price, Don Attending Unavailable Basali, Owen Attending Unavailable Price, Don Primary Care Unavailable Basali, Owen Referring Unavailable Price, Don Referring Unavailable Price, Don Attending Unavailable Price, Don Primary Care Unavailable Price, Don Referring Unavailable Price, Don Attending Unavailable Price, Don Primary Care Unavailable Price, Don Referring Unavailable Taran Gay Attending Unavailable Price, Don Primary Care Unavailable Allergies Allergy Classification Reported Allergen(s) Allergy Type Date of Onset Reaction(s) Facility (9 sources) Penicillins; Translations: [Penicillins] Allergy to substance 1 [facility] (5 sources) Lisinopril Drug Allergy 3 [facility] (3 sources) levoFLOXacin Drug Allergy 4 [facility] (1 source) levoFLOXacin Drug Allergy 4 [facility] (1 source) Lisinopril Drug Allergy 4 [facility] Medications Current Medications Medication Drug Class(es) Dates Sig (Normalized) Sig (Original) acetaminophen 325 mg / HYDROcodone bitartrate 5 mg oral tablet (8 sources) Opioid Agonist Start: 09-13-2020 take 1 tablet by mouth every six hours as needed for pain Hydrocodone-Acetam inophen 1 TABLET tablet Active 1 {tbl} PO EVERY 6 HOURS NEEDED as needed for Pain 10 3 0 September 13, 2020 Acute gout of wrist Gout, unspecified Start: 09-13-2020 take 1 tablet by dio th every six hours as needed Hydrocodone-Acetaminophen Active 1 TABLE T PO EVERY 6 HOURS NEEDED 10 3 September 13, 2020 ascorbic acid 1000 mg oral capsule (5 sources) Vitamin C Start: 05-09-2022 take 1 g by mouth every six hours Ascorbic Acid (Vitamin C) 1,000 mg capsule Active 1 g PO EVERY 6 HOURS May 09, 2022 1:00am Start: 05-09-2022 take 1 g by mouth ev matthieu six hours Ascorbic Acid (Vitamin C) Active 1 GM PO EVERY 6 HOURS May 09, 2022 12:00am Start: 05-09-2022 take 1 g by mouth ev matthieu six hours Ascorbic Acid (Vitamin C) Active 1 GM PO EVERY 6 HOURS May 09, 2022 1:00am azithromycin 250 mg oral tablet (3 sources) Macrolide Antimicrobial Start: 02-26-2024 Azithromycin 250 mg tablet Active 250 mg PO .COMPLEX 12 0 February 26, 2024 1:00am 2 tablets (500 mg) on day 1, then 1 tablet daily on days 2 through 11 cholecalciferol 0.025 mg oral capsule (5 sources) Vitamin D Start: 05-09-2022 take 1 capsule by mouth once daily Cholecalciferol (Vitamin D3) 25 mcg (1,000 unit) capsule Active 25 ug PO DAILY May 09, 2022 1:00am losartan potassium 50 mg oral tablet (5 sources) Angiotensin 2 Receptor Pearl Start: 05-09-2022 take 1 tablet by mouth once daily Losartan 50 mg tablet Active 50 mg PO DAILY May 09, 2022 1:00am vitamin e 450 mg oral capsule (5 sources) Start: 05-09-2022 take 1 capsule by mouth once daily Vitamin E (Dl, Acetate) 450 mg (1,000 unit) capsule Active 450 mg PO DAILY May 09, 2022 1:00am Completed/Discontinued Medications Medication Drug Class(es) Dates Sig (Normalized) Sig (Original) methylPREDNISolone 4 mg oral tablet (8 sources) Corticosteroid Start: 1 End: 4 Methylprednisolone 4 MG tablets,dose pack Discontinued 4 mg PO DIRECTED 1 September 13, 2020 12:00am February 26, 2024 6:08pm Problems Problem Classification Problem Date Documented Date Episodic/Chronic Essential hypertension (4 sources) Hypertensive disorder; Translations: [Essential (primary) hypertension] Onset: 10-08-2024 02-26-2024 Chronic Gout and other crystal arthropathies (1 source) Gout, unspecified; Translations: [Gout, unspecified] Onset: 07-17-2024 Chronic Osteoarthritis (3 sources) Osteoarthritis; Translations: [Unspecified osteoarthritis, unspecified site] 02-26-2024 Chronic Residual codes; unclassified (5 sources) History of lumbar laminectomy; Translations: [Other specified postprocedural states] 05-09-2022 Episodic Residual codes; unclassified (1 source) Other specified postprocedural states; Translations: [Other postprocedural status] 05-09-2022 Episodic Spondylosis; intervertebral disc disorders; other back problems (12 sources) Lumbar spondylosis; Translations: [Spondylosis without myelopathy or radiculopathy, lumbar region] Onset: 10-02-2024 05-09-2022 Chronic Substance-related disorders (2 sources) Nicotine dependence, unspecified, uncomplicated; Translations: [Opioid dependence, uncomplicated] Onset: 08-04-2024 Chronic Results Test Name Value Interpretation Reference Range Facil ity Anion gap in Serum or Plasma Ordered By: Don Price on 10-02-2024 Anion gap [Moles/Vol] 12 mmol/L 08-06 [facility] BUN/creatinine ratioOrdered By: Don Price on 10-02-2024 Urea nitrogen/Creatinine [Mass ratio] 13.6 mg/mg 10-20 [facility] Bilirubin, totalOrdered By: Don Price on 10-02-2024 Bilirubin [Mass/Vol] 0.58 mg/dL 0.00-1.30 [facility] Calculated very low density lipoprotein (VLDL) cholesterol measurementOrdered By: Don Price on 10-02-2024 Calculated very low density lipoprotein (VLDL) cholesterol measurement 31 mg/dL 5-40 [facility] Carbon dioxide, total [Moles /volume] in Central venous bloodOrdered By: Don Price on 10-02-2024 CO2 [Moles/Vol] 24.7 mmol/L 21.0-32.0 [facility] Chloride assayOrdered By: Jose Price on 10-02-2024 Chloride [Moles/Vol] 103 mmol/L 98-108 [facility] Comprehensive Metabolic Prof ilon 10-02-2024 Albumin [Mass/Vol] 4.5 g/dL Normal 3.4-4.8 [facility] Comment on above: Performed By: #### L 500.4100, L501.9520, L509.3001, L501.9985, L500.4050 #### [facility] Laboratory [address] [place], [address] Albumin/Globulin [Mass ratio] 1.7 {ratio} Normal 0.9-2.4 [facility] Comment on above: Performed By: #### L 500.4100, L501.9520, L509.3001, L501.9985, L500.4050 #### [facility] [address] [place], [address] ALK PHOS 71 U/L Normal 40-129 [facility] Comment on above: Performed By: #### L 500.4100, L501.9520, L509.3001, L501.9985, L500.4050 #### [facility] [address] [place], [address] ALT [Catalytic activity/Vol] 44 U/L Normal <=46 [facility] Comment on above: Performed By: #### L 500.4100, L501.9520, L509.3001, L501.9985, L500.4050 #### [facility] [address] [place], [address] AST [Catalytic activity/Vol] 39 U/L High <=37 [facility] Comment on above: Performed By: #### L 500.4100, L501.9520, L509.3001, L501.9985, L500.4050 #### [facility] [address] [place], [address] Bilirubin [Mass/Vol] 0.58 mg/dL Normal 0.00-1.30 [facility] Comment on above: Performed By: #### L 500.4100, L501.9520, L509.3001, L501.9985, L500.4050 #### [facility] [address] [place], [address] BUN/CRE 13.6 RATIO Normal 10-20 [facility] Comment on above: Performed By: #### L 500.4100, L501.9520, L509.3001, L501.9985, L500.4050 #### [facility] [address] [place], [address] Calcium [Mass/Vol] 9.9 mg/dL Normal 7.6-11.0 [facility] Comment on above: Performed By: #### L 500.4100, L501.9520, L509.3001, L501.9985, L500.4050 #### [facility] [address] [place], [address] Chloride [Moles/Vol] 103 mmol/L Normal 98-108 [facility] Comment on above: Performed By: #### L 500.4100, L501.9520, L509.3001, L501.9985, L500.4050 #### [facility] [address] [place], [address] CO2 [Moles/Vol] 24.7 mmol/L Normal 21.0-32.0 [facility] Comment on above: Performed By: #### L 500.4100, L501.9520, L509.3001, L501.9985, L500.4050 #### [facility] [address] [place], [address] Creatinine [Mass/Vol] 1.07 mg/dL Normal 0.70-1.20 [facility] Comment on above: Performed By: #### L 500.4100, L501.9520, L509.3001, L501.9985, L500.4050 #### [facility] [address] [place], [address] GAP 12 Normal 5-15 [facility] Comment on above: Performed By: #### L 500.4100, L501.9520, L509.3001, L501.9985, L500.4050 #### [facility] [address] [place], [address] GFR/1.73 sq M.predicted among non-blacks MDRD (S/P/Bld) [Vol rate/Area] 78 mL/min/{1.73_m2} Normal >60 [facility] Comment on above: Result Comment: mL/m in/1.73m2 CKD-EPI Creatinine Equation (2020) Performed By: #### L 500.4100, L501.9520, L509.3001, L501.9985, L500.4050 #### [facility] [address] [place], [address] Globulin (S) [Mass/Vol] 2.7 g/dL Normal 2.2-4.2 [facility] Comment on above: Performed By: #### L 500.4100, L501.9520, L509.3001, L501.9985, L500.4050 #### [facility] [address] [place], [address] Glucose [Mass/Vol] 87 mg/dL Normal 70-99 [facility] Comment on above: Performed By: #### L 500.4100, L501.9520, L509.3001, L501.9985, L500.4050 #### [facility] [address] [place], [address] Potassium [Moles/Vol] 4.0 mmol/L Normal 3.3-5.1 [facility] Comment on above: Performed By: #### L 500.4100, L501.9520, L509.3001, L501.9985, L500.4050 #### [facility] [address] [place], [address] Sodium [Moles/Vol] 140 mmol/L Normal 133-145 [facility] Comment on above: Performed By: #### L 500.4100, L501.9520, L509.3001, L501.9985, L500.4050 #### [facility] [address] [place], [address] T PROT 7.2 g/dL Normal 5.9-8.4 [facility] Comment on above: Performed By: #### L 500.4100, L501.9520, L509.3001, L501.9985, L500.4050 #### [facility] [address] [place], [address] Urea nitrogen [Mass/Vol] 15 mg/dL Normal 4-19 [facility] Comment on above: Performed By: #### L 500.4100, L501.9520, L509.3001, L501.9985, L500.4050 #### [facility] [address] [place], [place], [address] Glomerular filtration rate ( GFR) estimation/1.73 sq m using serum, plasma, or whole bOrdered By: Don Price on 10-02-2024 GFR/1.73 sq M.predicted among non-blacks MDRD (S/P/Bld) [Vol rate/Area] 78 mL/min/{1.73_m2} >60 [facility] Comment on above: mL/min/1.73m2 CKD-EP I Creatinine Equation (2020) Hemoglobin A1con 10-02-2024 HbA1c (Bld) [Mass fraction] 5.2 % Normal <=5.6 [facility] Comment on above: Result Comment: Norm al < 5.7 % Prediabetic 5.7 - 6.4 % Diabetic >or= 6.5 % Please note range changes. Performed By: #### L 500.4100, L501.9520, L509.3001, L501.9985, L500.4050 #### [facility] [address] [place], [place], [address] Hemoglobin A1c percentageOrd ered By: Don Price on 10-02-2024 HbA1c (Bld) [Mass fraction] 5.2 % <5.7 [facility] Comment on above: Normal < 5.7 % Predi abetic 5.7 - 6.4 % Diabetic >or= 6.5 % Please note range changes. L509.3001on 10-02-2024 Testosterone [Mass/Vol] 480.00 ng/dL Normal 300-720 [facility] Comment on above: Performed By: #### L 505.5000, L3410.9992 #### [facility] [address] [place], [address] LDL calc ser/plasOrdered By: Don Price on 10-02-2024 Cholesterol in LDL [Mass/Vol] 132 mg/dL [facility] Comment on above: Jtommxzftq=426-248 m g/dL & Higher Qmmb=161 mg/dL or greater Laboratory - Chemistry and C hemistry - challengeOrdered By: Don Price on 10-02-2024 AST [Catalytic activity/Vol] 39 U/L High <38 [facility] Testosterone [Mass/Vol] 480.00 ng/dL 300-720 [facility] Lipid Profileon 10-02-2024 CHOL:HDL 5.94 Normal [facility] Comment on above: Performed By: #### L 500.4100, L501.9520, L509.3001, L501.9985, L500.4050 #### [facility] [address] [place], [address] Cholesterol [Mass/Vol] 196 mg/dL Normal <=200 [facility] Comment on above: Result Comment: Chol esterol level, Desirable <200 mg/dL Borderline high cholesterol 200-239 mg/dL High cholesterol >=240 mg/dL Recommendations of the NCEP Adult Treatment Panel for the following risk-cutoff thresholds for the [place] population. Performed By: #### L 500.4100, L501.9520, L509.3001, L501.9985, L500.4050 #### [facility] [address] [place], [address] Cholesterol in HDL [Mass/Vol] 33 mg/dL Low [facility] Comment on above: Result Comment: Manisha onal Cholesterol Education Program (NCEP) guidelines: <40 mg/dL: Low HDL-cholesterol (major risk factor for CHD) >= 60 mg/dL: High HDL-cholesterol (negative risk factor for CHD) HDL-cholesterol is affected by a number of factors, e.g. smoking, exercise, hormones, sex and age. Performed By: #### L 500.4100, L501.9520, L509.3001, L501.9985, L500.4050 #### [facility] [address] [place], [address] Cholesterol in LDL [Mass/Vol] 132 mg/dL Normal [facility] Comment on above: Result Comment: Bord gdxaff=857-209 mg/dL Higher Eqvi=580 mg/dL or greater Performed By: #### L 500.4100, L501.9520, L509.3001, L501.9985, L500.4050 #### [facility] [address] [place], [address] Cholesterol in VLDL [Mass/Vol] 31 mg/dL Normal 5-40 [facility] Comment on above: Performed By: #### L 500.4100, L501.9520, L509.3001, L501.9985, L500.4050 #### [facility] [address] [place], [address] Triglyceride [Mass/Vol] 155 mg/dL Normal [facility] Comment on above: Result Comment: The drugs N-Acetylcysteine and Metamizole may falsely depress this assay. Normal range: <150 mg/dL Borderline High: 150-199 mg/dL High: 200-499 mg/dL Very High: >500 mg/dL Performed By: #### L 500.4100, L501.9520, L509.3001, L501.9985, L500.4050 #### [facility] [address] [place], [address] Potassium measurement (mass/ volume)Ordered By: Don Price on 10-02-2024 Potassium (Unsp spec) [Mass/Vol] 4.0 mmol/L 3.3-5.1 [facility] Screening total cholesterol/ high density lipoprotein (HDL) cholesterol ratioOrdered By: Don Price on 10-02-2024 Cholesterol.total/Chol esterol in HDL [Mass ratio] 5.94 {ratio} [facility] Serum creatinine measurement (mass/volume)Ordered By: Don Price on 10-02-2024 Creatinine [Mass/Vol] 1.07 mg/dL 0.70-1.20 [facility] Serum globulin measurementOr dered By: Dno Price on 10-02-2024 Globulin (S) [Mass/Vol] 2.7 g/dL 2.2-4.2 [facility] Serum glucose measurement (m ass/volume)Ordered By: Don Price on 10-02-2024 Glucose [Mass/Vol] 87 mg/dL 70-99 [facility] Serum or plasma alanine smith otransferase (ALT) measurementOrdered By: Don Price on 10-02-2024 ALT [Catalytic activity/Vol] 44 U/L <47 [facility] Serum or plasma albumin nichol urement (mass/volume)Ordered By: Don Price on 10-02-2024 Albumin [Mass/Vol] 4.5 g/dL 3.4-4.8 [facility] Serum or plasma albumin/glob ulin mass ratioOrdered By: Don Price on 10-02-2024 Albumin/Globulin [Mass ratio] 1.7 {ratio} 0.9-2.4 [facility] Serum or plasma alkaline michel sphatase measurementOrdered By: Don Price on 10-02-2024 ALP [Catalytic activity/Vol] 71 U/L 40-129 [facility] Serum or plasma calcium nichol urement (mass/volume)Ordered By: Don Price on 10-02-2024 Calcium [Mass/Vol] 9.9 mg/dL 7.6-11.0 [facility] Serum or plasma cholesterol in HDL measurement (mass/volume)Ordered By: Don Price on 10-02-2024 Cholesterol in HDL [Mass/Vol] 33 mg/dL Low >40 [facility] Comment on above: National Cholesterol Education Program (NCEP) guidelines:<40 mg/dL: Low HDL-cholesterol (major risk factor for CHD)>= 60 mg/dL: High HDL-cholesterol (negative risk factor for CHD)HDL-cholesterol is affected by a number of factors, e.g. smoking, exercise, hormones, sex and age. Serum or plasma cholesterol measurement (mass/volume)Ordered By: Don Price on 10-02-2024 Cholesterol [Mass/Vol] 196 mg/dL <201 [facility] Comment on above: Cholesterol level, D esirable <200 mg/dLBorderline high cholesterol 200-239 mg/dLHigh cholesterol >=240 mg/dLRecommendations of the NCEP Adult Treatment Panel for the following risk-cutoff thresholds for the [place] population. Serum or plasma urea nitroge n measurement (mass/volume)Ordered By: Don Price on 10-02-2024 Urea nitrogen [Mass/Vol] 15 mg/dL 4-19 [facility] Sodium levelOrdered By: Don Price on 10-02-2024 Sodium [Moles/Vol] 140 mmol/L 133-145 [facility] TSH DL <= 0.005 mIU/L QnOrde red By: Don Price on 10-02-2024 TSH Qn 1.980 uIU/mL 0.300-4.200 [facility] Thyroid Stim Hormone (TSH)on 10-02-2024 TSH 1.980 uIU/mL Normal 0.300-4.200 [facility] Comment on above: Performed By: #### L 500.4100, L501.9520, L509.3001, L501.9985, L500.4050 #### [facility] [address] [place], [place], [address] Total proteinOrdered By: Radha Price on 10-02-2024 Protein [Mass/Vol] 7.2 g/dL 5.9-8.4 [facility] Triglycerides measurementOrd ered By: Don Price on 10-02-2024 Triglyceride [Mass/Vol] 155 mg/dL <199 [facility] Comment on above: The drugs N-Acetylcy steine and Metamizole may falsely depress this assay. Normal range: <150 mg/dLBorderline High: 150-199 mg/dLHigh: 200-499 mg/dLVery High: >500 mg/dL Cerv Spine 2 or 3 Viewson Cerv Spine [address] or [address] [facility] [address] [place], [place] [address] Cerv Spine 2 or 3 Views MR#: [id number] Acct: [id number] Name: RAMANA BLANCO Rep #: [id number] : 1960 M 63 From: Carloz Lopes MD PCP: Dr. Don Price MD Status: REG CLI Study: Cerv Spine 2 or 3 Views Date of Exam: 09/24/24 Exam# [id number] Ordering Dr: Owen Gonzalez MD PROCEDURE: CERV SPINE 2 OR 3 VIEWS 09/24/2024 REASON FOR EXAM: SPONDYLOSIS W/O RADICULOPATHY cervical AREA TECHNIQUE: CERV SPINE 2 OR 3 VIEWS COMPARISON: No FINDINGS: Disc space narrowing, and osteophyte formation, C5 through C7. Mild and diffuse facet arthritis. 3 mm retrolisthesis, C5 on C6 and also C6 on C7. No acute bone, soft tissue, or lung pathology. RAD/Cerv Spine 2 or 3 Views IMPRESSION: Cervical spine degeneration Disclaimer: Reading Location: [place] [address] CC: Dr. Owen Gonzalez MD; Dr. Don Price MD Night Manager: Signed Normal [facility] L3410.9992on 08-07-2024 [facility]. COMMENT Normal . [facility] Comment on above: Order Comment: [id number] UDS Result Comment: Test Ordered: [id number] Compliance Drug Analysis, Ur Specimen Comment: ToxAssure, ToxAssure FLEX or MAT drug testin Specimen Comment: -Technical component - Data analysis performed at Specimen Comment: [facility], [address] [place] [address] Specimen Comment: [phone]. [phone] [employer] Devices Inspector/Tester Steve Carlton MD. Summary Report (Summary) FINAL MX Reference Range: . ===== TOXASSURE COMP DRUG ANALYSIS,UR ===== Test Result Flag Units Drug Present Hydrocodone 727 ng/mg creat Hydromorphone 369 ng/mg creat Dihydrocodeine 119 ng/mg creat Norhydrocodone 783 ng/mg creat Sources of hydrocodone include scheduled prescription medications. Hydromorphone, dihydrocodeine and norhydrocodone are expected metabolites of hydrocodone. Hydromorphone and dihydrocodeine are also available as scheduled prescription medications. Acetaminophen PRESENT Dextrorphan/Levorphanol PRESENT Dextrorphan is an expected metabolite of dextromethorphan, an yvyc-tdc-eydhmpn or prescription cough suppressant. Levorphanol is a scheduled prescription medication. Dextrorphan cannot be distinguished from levorphanol by the method used for analysis. Guaifenesin PRESENT Guaifenesin may be administered as an aece-chf-cbhysap or prescription drug; it may also be present as a breakdown product of methocarbamol. ===== Test Result Flag Units Ref Range Creatinine 64 mg/dL >=20 ===== Declared Medications: Medication list was not provided. ===== For clinical consultation, please call . ===== Performed at: [employer] [address] [place] [id number] [employer] Devices Inspector/Tester: Yaneli Mcqueen, Phone: [phone] Performed at: [address] [id number] [employer] Inspector/Tester: Ankit Vernon PhD, Phone: [phone] Performed By: #### L 505.5000, L3410.9992 #### [facility] [address] [place], [place], [id number] Amphetamine detection with 1 000 ng/mL as cutoffOrdered By: Owen Gonzalez on 07-30-2024 Amphetamines Screen method >1000 ng/mL Ql (U) Negative < 200 ng/mL [facility] No Panel InformationOrdered By: Owen Gonzalez on 07-30-2024 Urine Buprenorphine Qualitative Negative < 200 ng/mL [facility] [facility] Urine Oxycodone Screen Negative < 100 ng/mL [facility] Quantitative urine opiates m easurementOrdered By: Owen Gonzalez on 07-30-2024 Opiates Ql (U) Positive < 300 ng/mL [facility] Comment on above: If confirmation test ing is needed, a separate order will be required to send out testing to the reference laboratory. Screening urine fentanyl tatiana surementOrdered By: Owen Gonzalez on 07-30-2024 fentaNYL Screen Ql (U) Negative [facility] Urine Drug Screen (VISTA)on 07-30-2024 AMPHETAMINES Negative Normal <1000 ng/mL [facility] Comment on above: Order Comment: UNKNO WN Performed By: #### L 505.5000, L3410.9992 #### [facility] Laboratory [address] [facility] [phone] BARBITIURATES Negative Normal < 200 ng/mL [facility] Comment on above: Order Comment: UNKNO WN Performed By: #### L 505.5000, [id number] #### [facility] Laboratory [address] [facility] [id number] BENZODIAZIPINE Negative Normal < 200 ng/mL [facility] Comment on above: Order Comment: UNKNO WN Performed By: #### L 505.5000, [id number] #### [facility] Laboratory [address] [facility] [phone] BUP Ur Drug Scr Negative Normal < 200 ng/mL [facility] Comment on above: Order Comment: UNKNO WN Performed By: #### L 505.5000, [id number] #### [facility] Laboratory [address] [facility] [address] COCAINE Negative Normal < 300 ng/mL [facility] Comment on above: Order Comment: UNKNO WN Performed By: #### L 505.5000, [id number] #### [facility] Laboratory [address] [facility] [address] Fentanyl Negative Normal [facility] Comment on above: Order Comment: UNKNO WN Performed By: #### L 505.5000, [id number] #### [facility] Laboratory [address] [facility] [address] METHADONE Negative Normal < 300 ng/mL [facility] Comment on above: Order Comment: UNKNO WN Performed By: #### L 505.5000, [id number] #### [facility] Laboratory [address] [facility] [address] OPIATES Positive Normal < 300 ng/mL [facility] Comment on above: Order Comment: UNKNO WN Result Comment: If c onfirmation testing is needed, a separate order will be required to send out testing to the reference laboratory. Performed By: #### L 505.5000, [id number] #### [facility] Laboratory [address] [facility] [address] OXYCODONE Negative Normal < 100 ng/mL [facility] Comment on above: Order Comment: UNKNO WN Performed By: #### L 505.5000, [id number] #### [facility] Laboratory [address] [facility] [address] PCP Negative Normal < 25 ng/mL [facility] Comment on above: Order Comment: UNKNO WN Performed By: #### L 505.5000, [id number] #### [facility] Laboratory [address] [place], [address] THC Negative Normal < 50 ng/mL [facility] Comment on above: Order Comment: UNKNO WN Performed By: #### L 505.5000, [id number] #### [facility] Laboratory [address] [place], [place], [id number] Urine benzodiazepine levelOr dered By: Owen Basali on 07-30-2024 Benzodiazepines Ql (U) Negative < 200 ng/mL [facility] Urine cocaine levelOrdered B y: Ayman Basali on 07-30-2024 Cocaine Ql (U) Negative < 300 ng/mL [facility] Urine fgblw-3-xnxhicmututuxf abinol (THC) measurementOrdered By: Owen Basali on 07-30-2024 Cannabinoids Screen Ql (U) Negative < 50 ng/mL [facility] Urine phencyclidine (PCP) de tectionOrdered By: [facility] Basali on 07-30-2024 Phencyclidine Ql (U) Negative < 25 ng/mL [facility] Serum or plasma uric acid me asurement (mass/volume)Ordered By: Don Price on 07-13-2024 Urate [Mass/Vol] 8.7 mg/dL High 3.5-7.2 [facility] Comment on above: The drugs N-Acetylcy steine and Metamizole may falsely depress this assay. Uric Acidon 07-13-2024 URIC 8.7 mg/dL High 3.5-7.2 [facility] Comment on above: Result Comment: The drugs N-Acetylcysteine and Metamizole may falsely depress this assay. Performed By: #### L 501.1400 #### [facility] Laboratory [address] [place], [address] Basic Metabolic Profile (BMP )on 05-19-2024 BUN/CRE 16.8 RATIO Normal 10-20 [facility] Comment on above: Performed By: #### L 500.2500, L500.4100 #### [facility] Laboratory [address] [place], [address] CA,Total 9.9 mg/dL Normal 8.5-10.1 [facility] Comment on above: Performed By: #### L 500.2500, L500.4100 #### [facility] Laboratory [address] [place], [address] Chloride [Moles/Vol] 102 mmol/L Normal 98-107 [facility] Comment on above: Performed By: #### L 500.2500, L500.4100 #### [facility] Laboratory [address] [place], [address] CO2 [Moles/Vol] 27.0 mmol/L Normal 21.0-32.0 [facility] Comment on above: Performed By: #### L 500.2500, L500.4100 #### [facility] Laboratory [address] [place], [address] Creatinine [Mass/Vol] 1.19 mg/dL Normal 0.70-1.30 [facility] Comment on above: Result Comment: The validity of the calculated GFR GFRAA in patients over 70 years has not been determined. Clinical correlation is essential. Performed By: #### L 500.2500, L500.4100 #### [facility] Laboratory [address] [place], [address] EST GFR - AA 80 mL/min Normal >60 [facility] Comment on above: Result Comment: Afri can [place] GFR Calc Performed By: #### L 500.2500, L500.4100 #### [facility] Laboratory [address] [place], [address] GAP 6 Normal 5-15 [facility] Comment on above: Performed By: #### L 500.2500, L500.4100 #### [facility] Laboratory [address] [place], [address] GFR/1.73 sq M.predicted among non-blacks MDRD (S/P/Bld) [Vol rate/Area] 66 mL/min/{1.73_m2} Normal >60 [facility] Comment on above: Result Comment: Non- GFR Calc Performed By: #### L 500.2500, L500.4100 #### [facility] Laboratory [address] [place], [address] Glucose [Mass/Vol] 93 mg/dL Normal 74-106 [facility] Comment on above: Performed By: #### L 500.2500, L500.4100 #### [facility] Laboratory [address] [place], [address] Potassium [Moles/Vol] 4.1 mmol/L Normal 3.5-5.1 [facility] Comment on above: Performed By: #### L 500.2500, L500.4100 #### [facility] Laboratory [address] [place], [address] Sodium [Moles/Vol] 135 mmol/L Low 136-145 [facility] Comment on above: Performed By: #### L 500.2500, L500.4100 #### [facility] Laboratory [address] [place], [address] Urea nitrogen [Mass/Vol] 20 mg/dL High 7-18 [facility] Comment on above: Performed By: #### L 500.2500, L500.4100 #### [facility] Laboratory [address] [place], [address] Lipid Profileon 05-19-2024 Cholesterol [Mass/Vol] 223 mg/dL High 200 [facility] Comment on above: Result Comment: <200 mg/dL Desirable 200-240 mg/dL Borderline >240 mg/dL High Risk Performed By: #### L 500.2500, L500.4100 #### [facility] Laboratory [address] [place], [address] Cholesterol in HDL [Mass/Vol] 38 mg/dL Low [facility] Comment on above: Result Comment: The drugs N-Acetylcysteine and Metamizole may falsely depress this assay. Reference Range HDL <40 mg/dL Low HDL Cholesterol HDL >or= 60 mg/dL High HDL Cholesterol Performed By: #### L 500.2500, L500.4100 #### [facility] Laboratory [address] [place], [address] Cholesterol in LDL [Mass/Vol] 154 mg/dL High 0-130 [facility] Comment on above: Performed By: #### L 500.2500, L500.4100 #### [facility] Laboratory [address] [place], [address] Cholesterol in VLDL [Mass/Vol] 31 mg/dL Normal 5-40 [facility] Comment on above: Performed By: #### L 500.2500, L500.4100 #### [facility] Laboratory [address] [place], [address] Triglyceride [Mass/Vol] 157 mg/dL Normal [facility] Comment on above: Result Comment: The drugs N-Acetylcysteine and Metamizole may falsely depress this assay. Serum Triglycerides Reference Interval Normal <150 mg/dL Borderline high 150 - 199 mg/dL High 200 - 499 mg/dL Very High > or = 500 mg/dL Performed By: #### L 500.2500, L500.4100 #### [facility] Laboratory [address] [place], [address] Blood urea nitrogen (BUN)/cr eatinine ratioOrdered By: Don Price on 05-18-2024 Urea nitrogen/Creatinine [Mass ratio] 16.8 mg/mg 10-20 [facility] Carbon dioxide measurementOr dered By: Don Price on 05-18-2024 CO2 [Moles/Vol] 27.0 mmol/L 21.0-32.0 [facility] Chloride measurementOrdered By: Don Price on 05-18-2024 Chloride [Moles/Vol] 102 mmol/L 98-107 [facility] Glomerular filtration rate ( GFR) estimationOrdered By: Don Price on 05-18-2024 GFR/1.73 sq M.predicted among non-blacks MDRD (S/P/Bld) [Vol rate/Area] 66 mL/min/{1.73_m2} >60 [facility] Comment on above: Non- GFR Calc Glucose measurementOrdered B y: Don Price on 05-18-2024 Glucose [Mass/Vol] 93 mg/dL 74-106 [facility] High density lipoprotein (HD L) measurementOrdered By: Don Price on 05-18-2024 Cholesterol in HDL [Mass/Vol] 38 mg/dL Low >40 [facility] Comment on above: The drugs N-Acetylcy steine and Metamizole may falsely depress this assay. Reference Range HDL <40 mg/dL Low HDL Cholesterol HDL >or= 60 mg/dL High HDL Cholesterol Low density lipoprotein (LDL ) cholesterol measurementOrdered By: Don Price on 05-18-2024 Cholesterol in LDL [Mass/Vol] 154 mg/dL High 0-130 [facility] Potassium measurementOrdered By: Don Price on 05-18-2024 Potassium [Moles/Vol] 4.1 mmol/L 3.5-5.1 [facility] Serum anion gap measurementO rdered By: Don Price on 05-18-2024 Anion gap [Moles/Vol] 6 mmol/L 5-15 [facility] Serum or plasma calcium nichol urement (mass/volume)Ordered By: Don Price on 05-18-2024 Calcium [Mass/Vol] 9.9 mg/dL 8.5-10.1 [facility] Serum or plasma cholesterol measurement (mass/volume)Ordered By: Don Price on 05-18-2024 Cholesterol [Mass/Vol] 223 mg/dL High <200 [facility] Comment on above: <200 mg/dL Desirable 200-240 mg/dL Borderline >240 mg/dL High Risk Serum or plasma creatinine m easurement (mass/volume)Ordered By: Don Price on 05-18-2024 Creatinine [Mass/Vol] 1.19 mg/dL 0.70-1.30 [facility] Comment on above: The validity of the calculated GFR & GFRAA in patients over 70 years has not been determined. Clinical correlation is essential. Serum or plasma urea nitroge n measurement (mass/volume)Ordered By: Don Price on 05-18-2024 Urea nitrogen [Mass/Vol] 20 mg/dL High 7-18 [facility] Sodium levelOrdered By: Don Price on 05-18-2024 Sodium [Moles/Vol] 135 mmol/L Low 136-145 [facility] Triglycerides measurementOrd ered By: Don Price on 05-18-2024 Triglyceride [Mass/Vol] 157 mg/dL <199 [facility] Comment on above: The drugs N-Acetylcy steine and Metamizole may falsely depress this assay.Serum Triglycerides Reference Interval Normal <150 mg/dL Borderline high 150 - 199 mg/dL High 200 - 499 mg/dL Very High > or = 500 mg/dL Very low density lipoprotein (VLDL) cholesterol measurementOrdered By: Don Price on 05-18-2024 Very low density lipoprotein (VLDL) cholesterol measurement 31 mg/dL 5-40 [facility] Urgent Care Visit Reporton 1 04-28-2023 Urgent Care Visit Report [facility] [address], [address] [place] [id number] OFFICE VISIT Date of Service: 02/26/24 MR#: [id number] Acct: [id number] Name: RAMANA BLANCO Rep #: [id number] : 1960 Provider: JOSE Khan Age/Sex: 63/M Location: [facility] [place] [facility] Status: Signed Intake Vital Signs 05/09/22 09:19 02/26/24 17:08 Height 5 ft 10 in 5 ft 10 in Weight: 213 lb 2 oz BMI 30.5 BP 150/88 H Blood Pressure Location Lt brachial Position Sitting Respiration 17 Pulse 81 Pulse Source NIBP Temp 98.4 F Temp Source Oral Pulse Oximetry (%) 98 Oxygen Delivery Method room air Intake Visit Reasons: R EAR PAIN/ST Chief Complaint: right ear pain/ ST [employer] Required: No Is patient in pain?: Yes Allergies levofloxacin (From Levaquin) Allergy (Mild, Verified 02/26/24 17:07) Rash lisinopril Allergy (Verified 02/26/24 17:07) Rash Penicillins (PCN) Allergy (Verified 02/26/24 17:07) Rash Medications ???Medication ???Instructions ???Recorded ???Confirmed ???Type hydrocodone-acetamino phen 5-325mg 1 tab PO Q6H PRN PRN Pain 3 days 09/13/20 Rx 5mg-325mg #10 TABLETS ascorbic acid (vitamin C) 1,000 mg 1 g PO Q6H 05/09/22 05/09/22 History capsule cholecalciferol (vitamin D3) 25 25 mcg PO DAILY 05/09/22 05/09/22 History mcg (1,000 unit) capsule losartan 50 mg tablet 50 mg PO DAILY 05/09/22 05/09/22 History vitamin E (dl, acetate) 450 mg 450 mg PO DAILY 05/09/22 05/09/22 History (1,000 unit) capsule azithromycin 250 mg tablet 250 mg PO .COMPLEX #12 tabs 02/26/24 02/26/24 Rx Have you fallen in the past year?: No Nurse's Note: right ear pain, right sided ST x 2-3 days without resolve. denies drainage or fever, denies painful swallowing. ST worse in am. also notes knot behind right ear PFSH Medical History (Updated 02/26/24 @ 17:07 by Emily Lopez) Osteoarthritis HTN (hypertension) H/O hemorrhoids Surgical History (Updated 02/26/24 @ 17:07 by Emily Lopez) Hx of hemorrhoidectomy History of knee replacement History of hernia repair H/O lumbosacral spine surgery Social History (Updated 05/09/22 @ 09:23 by Belinda Allen) household members: spouse Smoking Status: Current every day smoker tobacco type: cigarettes alcohol intake: current alcohol intake frequency: a few times a week HPI HPI Chief Complaint: right ear pain/ ST Details: RAMANA BLANCO, is a 63 M who presents to the office today for [facility] for approximately 3-day history of right ear pain, right sided ST x 2-3 days without resolve with purulent postnasal drip. No complaints of fever, chills, myalgias, fatigue, runny nose, or nausea/vomiting/diarr hea. No complaints of chest pain/shortness of breath/dyspnea on exertion. Tobacco smoker. No close contacts with similar complaints. No other associated symptoms and no other alleviating/aggravati ng factors. PMH: Admits chronic sinusitis ROS Const Constitutional: No other (as above) Exam Const General: cooperative, healthy appearing and no acute distress Nutritional Appearance: average body habitus Orientation: alert, awake and oriented x3 [facility] Head: normal to inspection Ears: hearing grossly normal bilaterally, external ears normal, TM's normal bilaterally and EAC's normal Nose: external nose normal, nares normal, septum normal and no nasal discharge Face and sinus: normal facial exam, sinuses nontender, and face symmetric Mouth: oral mucosae normal, lip normal, tongue normal and oropharynx normal Throat: posterior oropharynx normal, tonsils normal, uvula midline and postnasal drainage (Purulent) Eyes General: appearance normal, both eyes and all related structures Neck Neck: normal visual inspection, full ROM, no meningeal signs, supple and lymphadenopathy (Bilateral anterior cervical lymph node swelling/nontender to palpation as well as palpable hard right postauricular lymph node swelling/nontender to touch) Neck mass: No Thyroid: thyroid normal Chest Chest palpation inspection: normal inspection of the chest Resp Effort Inspection: normal respiratory effort and able to speak in complete sentences Auscultation: Bilateral: Clear to Auscultation Cardio Palpation: normal PMI Rate: regular rate Rhythm: regular rhythm Heart Sounds: S1 normal, S2 normal, no gallops, no murmurs and no rubs Pulses: radial pulses present GI Inspection: normal to inspection Skin General: no rashes or lesions noted Neuro General: patient alert, patient awake and patient oriented x3 Cognition: normal cognition Speech: speech normal Psych Appearance: grossly normal Mental Status: mental status grossly normal Mood: congruent mood Affect: normal affect Speech and Movement: speech and movement normal Attitude: cooperative (more content not included)... Normal [facility] Basophil percentageOrdered B y: Dr. Price on 02-27-2022 Chloride [Moles/Vol] 104 mmol/L 98-107 [facility] Cholesterol [Mass/Vol] 229 mg/dL <200 [facility] Comment on above: <200 mg/dL Desirable 200-240 mg/dL Borderline >240 mg/dL High Risk Glucose [Mass/Vol] 89 mg/dL 74-106 [facility] Potassium [Moles/Vol] 4.2 mmol/L 3.5-5.1 [facility] Sodium [Moles/Vol] 141 mmol/L 136-145 [facility] Triglyceride [Mass/Vol] 169 mg/dL <199 [facility] Comment on above: The drugs N-Acetylcy steine and Metamizole may falsely depress this assay.Serum Triglycerides Reference Interval Normal <150 mg/dL Borderline high 150 - 199 mg/dL High 200 - 499 mg/dL Very High > or = 500 mg/dL Erythrocyte sedimentation ra teOrdered By: Dr. Price on 02-27-2022 ESR (Bld) [Velocity] 9 mm/h 0-20 [facility] - Chemistry and C hemistry - challengeOrdered By: Dr. Price on 02-27-2022 CO2 [Moles/Vol] 29.0 mmol/L 21.0-32.0 [facility] Urea nitrogen/Creatinine [Mass ratio] 12.3 mg/mg 10-20 [facility] No Panel InformationOrdered By: Dr. Price on 02-27-2022 Anti-Nuclear Antibody Screen Positive Negative [facility] Comment on above: Performed at: [address] Director: Ankit Vernon PhD, Phone: [phone] Estimated GFR (MDRD) Amer 92 mL/min >60 [facility] Comment on above: GFR Calc Estimated GFR (MDRD) Non-Af Amer 76 mL/min >60 [facility] Comment on above: Non- GFR Calc Serum or plasma calcium nichol urement (mass/volume)Ordered By: Dr. Price on 02-27-2022 Calcium [Mass/Vol] 9.1 mg/dL 8.5-10.1 [facility] Serum or plasma cholesterol in HDL measurement (mass/volume)Ordered By: Dr. Price on 02-27-2022 Cholesterol in HDL [Mass/Vol] 33 mg/dL >40 [facility] Comment on above: The drugs N-Acetylcy steine and Metamizole may falsely depress this assay. Reference Range HDL <40 mg/dL Low HDL Cholesterol HDL >or= 60 mg/dL High HDL Cholesterol Serum or plasma cholesterol in VLDL measurement (mass/volume)Ordered By: Dr. Price on 02-27-2022 Cholesterol in VLDL [Mass/Vol] 34 mg/dL 5-40 [facility] Serum or plasma creatinine m easurement (mass/volume)Ordered By: Dr. Price on 02-27-2022 Creatinine [Mass/Vol] 1.06 mg/dL 0.70-1.30 [facility] Comment on above: The validity of the calculated GFR & GFRAA in patients over 70 years has not been determined. Clinical correlation is essential. Serum or plasma low density lipoprotein (LDL) cholesterol measurement (mass/volume)Ordered By: Dr. Price on 02-27-2022 Cholesterol in LDL [Mass/Vol] 162 mg/dL 0-130 [facility] Serum or plasma urea nitroge n measurement (mass/volume)Ordered By: Dr. Price on 02-27-2022 Urea nitrogen [Mass/Vol] 13 mg/dL 7-18 [facility] Thin prep Papanicolaou smear with manual screeningOrdered By: Dr. Price on 02-27-2022 Thin prep Papanicolaou smear with manual screening 8 5-15 [facility] Absolute lymphocyte counton 10-05-2021 Lymphocytes Auto (Unsp spec) [#/Vol] 1.90 10*3/uL 0.83-4.51 [facility] Work Phone: Basophil percentageon 2021 Basophils/100 WBC (Bld) 0.8 % 0-1 [facility] Work Phone: Bilirubin [Mass/Vol] 0.50 mg/dL 0.20-1.00 [facility] Work Phone: Comment on above: For patients on eltr ombopag therapy, use of Dimension [place] TBIL is not recommended. Chloride [Moles/Vol] 107 mmol/L 98-107 [facility] Work Phone: Eosinophils/100 WBC (Bld) 4.9 % 0-5 [facility] Work Phone: Glucose [Mass/Vol] 78 mg/dL 74-106 [facility] Work Phone: Neutrophils (Bld) [#/Vol] 5.9 10*3/uL 2.0-7.7 [facility] Work Phone: Neutrophils/100 WBC (Bld) 64.8 % 47-70 [facility] Work Phone: Potassium [Moles/Vol] 4.1 mmol/L 3.5-5.1 [facility] Work Phone: Protein [Mass/Vol] 7.1 g/dL 6.4-8.2 [facility] Work Phone: Sodium [Moles/Vol] 138 mmol/L 136-145 [facility] Work Phone: WBC (Bld) [#/Vol] 9.2 10*3/uL 4.4-11.0 [facility] Work Phone: Blood erythrocytes count (nu mber/volume)on 10-05-2021 RBC (Bld) [#/Vol] 4.67 10*6/uL 4.6-6.2 [facility] Work Phone: Blood hemoglobin measurement (mass/volume)on 10-05-2021 Hemoglobin (Bld) [Mass/Vol] 14.4 g/dL 13.0-16.5 [facility] Work Phone: Blood lymphocytes/100 leukoc yteson 10-05-2021 Lymphocytes/100 WBC (Bld) 20.7 % 19-41 [facility] Work Phone: Blood monocytes/100 leukocyt eson 10-05-2021 Monocytes/100 WBC (Bld) 7.6 % 0-10 [facility] Work Phone: [phone] Blood platelet mean volumeon 10-05-2021 Platelet mean volume (Bld) [Entitic vol] 11.2 fL 6.2-12.0 [facility] Work Phone: Determination of erythrocyte mean corpuscular volume (MCV)on 10-05-2021 MCV (RBC) [Entitic vol] 91.0 fL 80-94 [facility] Work Phone: Hematocrit Auto (Bld) [Volum e fraction]on 10-05-2021 Hematocrit (Bld) [Volume fraction] 42.5 % 40-54 [facility] Work Phone: Laboratory - Chemistry and C hemistry - challengeon 10-05-2021 ALP [Catalytic activity/Vol] 71 U/L 45-117 [facility] Work Phone: [phone] ALT [Catalytic activity/Vol] 44 U/L 16-61 [facility] Work Phone: [phone] CO2 [Moles/Vol] 27.0 mmol/L 21.0-32.0 [facility] Work Phone: [phone] Globulin (S) [Mass/Vol] 3.0 g/dL 2.2-4.2 [facility] Work Phone: [phone] Urea nitrogen/Creatinine [Mass ratio] 17.3 mg/mg 10-20 [facility] Work Phone: [phone] Laboratory - Hematology and Cell countson 10-05-2021 Erythrocyte distribution width (RBC) [Entitic vol] 43.8 fL 35.1-43.9 [facility] Work Phone: [phone] Erythrocyte distribution width (RBC) [Ratio] 13.2 % 11.6-14.6 [facility] Work Phone: [phone] Immature granulocytes/100 WBC (Bld) 1.200 % 0.0-0.9 [facility] Work Phone: [phone] Comment on above: IG% - Immature Granu locytes (promyelocytes, myelocytes and metamyelocytes) > 1% indicates that a LEFT SHIFT is Present. MCH (RBC) [Entitic mass] 30.8 pg 27.0-32.0 [facility] Work Phone: [phone] Nucleated RBC/100 WBC (Bld) [Ratio] 0 % 0-5 [facility] Work Phone: [phone] MCHC Auto (RBC) [Mass/Vol]on 10-05-2021 MCHC (RBC) [Mass/Vol] 33.9 g/dL 32-36 [facility] Work Phone: [phone] Panel Informationon 10-05 Estimated GFR (MDRD) Amer 88 mL/min >60 [facility] Work Phone: [phone] Comment on above: GFR Calc Estimated GFR (MDRD) Non-Af Amer 73 mL/min >60 [facility] Work Phone: Comment on above: Non- GFR Calc Platelets bldon 10-05-2021 Platelets (Bld) [#/Vol] 201 10*3/uL 150-450 [facility] Work Phone: Serum or plasma albumin nichol urement (mass/volume)on 10-05-2021 Albumin [Mass/Vol] 4.1 g/dL 3.2-5.0 [facility] Work Phone: Serum or plasma albumin/glob ulin mass ratioon 10-05-2021 Albumin/Globulin [Mass ratio] 1.4 {ratio} 0.9-2.4 [facility] Work Phone: Serum or plasma calcium nichol urement (mass/volume)on 10-05-2021 Calcium [Mass/Vol] 9.3 mg/dL 8.5-10.1 [facility] Work Phone: [phone] Serum or plasma creatinine m easurement (mass/volume)on 10-05-2021 Creatinine [Mass/Vol] 1.10 mg/dL 0.70-1.30 [facility] Work Phone: Comment on above: The validity of the calculated GFR & GFRAA in patients over 70 years has not been determined. Clinical correlation is essential. Serum or plasma urea nitroge n measurement (mass/volume)on 10-05-2021 Urea nitrogen [Mass/Vol] 19 mg/dL 7-18 [facility] Work Phone: Thin prep Papanicolaou smear with manual screeningon 10-05-2021 Thin prep Papanicolaou smear with manual screening 25 U/L 15-37 [facility] Work Phone: [phone] Thin prep Papanicolaou smear with manual screening 4 5-15 [facility] Work Phone: [phone] Absolute lymphocyte counton 07-07-2021 Lymphocytes Auto (Unsp spec) [#/Vol] 1.37 10*3/uL 0.83-4.51 [facility] Work Phone: Basophil percentageon 2021 Basophils/100 WBC (Bld) 0.8 % 0-1 [facility] Work Phone: Bilirubin [Mass/Vol] 0.50 mg/dL 0.20-1.00 [facility] Work Phone: Comment on above: For patients on eltr ombopag therapy, use of Dimension [place] TBIL is not recommended. Chloride [Moles/Vol] 107 mmol/L 98-107 [facility] Work Phone: Eosinophils/100 WBC (Bld) 3.8 % 0-5 [facility] Work Phone: Glucose [Mass/Vol] 94 mg/dL 74-106 [facility] Work Phone: Neutrophils (Bld) [#/Vol] 4.9 10*3/uL 2.0-7.7 [facility] Work Phone: Neutrophils/100 WBC (Bld) 67.9 % 47-70 [facility] Work Phone: Potassium [Moles/Vol] 4.3 mmol/L 3.5-5.1 [facility] Work Phone: Protein [Mass/Vol] 7.3 g/dL 6.4-8.2 [facility] Work Phone: Sodium [Moles/Vol] 138 mmol/L 136-145 [facility] Work Phone: WBC (Bld) [#/Vol] 7.2 10*3/uL 4.4-11.0 [facility] Work Phone: Bilirubin Test strip Ql (U)o n 07-07-2021 Bilirubin Ql (U) Negative Negative [facility] Work Phone: Blood erythrocytes count (nu mber/volume)on 07-07-2021 RBC (Bld) [#/Vol] 5.06 10*6/uL 4.6-6.2 [facility] Work Phone: Blood hemoglobin measurement (mass/volume)on 07-07-2021 Hemoglobin (Bld) [Mass/Vol] 15.4 g/dL 13.0-16.5 [facility] Work Phone: [phone] Blood lymphocytes/100 leukoc yteson 07-07-2021 Lymphocytes/100 WBC (Bld) 19.1 % 19-41 [facility] Work Phone: [phone] Blood monocytes/100 leukocyt eson 07-07-2021 Monocytes/100 WBC (Bld) 7.7 % 0-10 [facility] Work Phone: [phone] Blood platelet mean volumeon 07-07-2021 Platelet mean volume (Bld) [Entitic vol] 10.4 fL 6.2-12.0 [facility] Work Phone: [phone] Determination of erythrocyte mean corpuscular volume (MCV)on 07-07-2021 MCV (RBC) [Entitic vol] 92.3 fL 80-94 [facility] Work Phone: [phone] Hematocrit Auto (Bld) [Volum e fraction]on 07-07-2021 Hematocrit (Bld) [Volume fraction] 46.7 % 40-54 [facility] Work Phone: [phone] INR in Blood by Coagulation assayon 07-07-2021 INR Coag (Bld) [Relative time] 1.0 {INR} [facility] Work Phone: [phone] Ketones Test strip Ql (U)on 07-07-2021 Ketones Ql (U) Negative Negative [facility] Work Phone: [phone] Laboratory - Chemistry and C hemistry - challengeon 07-07-2021 ALP [Catalytic activity/Vol] 70 U/L 45-117 [facility] Work Phone: ALT [Catalytic activity/Vol] 48 U/L 16-61 [facility] Work Phone: [phone] CO2 [Moles/Vol] 27.0 mmol/L 21.0-32.0 [facility] Work Phone: Globulin (S) [Mass/Vol] 3.3 g/dL 2.2-4.2 [facility] Work Phone: Urea nitrogen/Creatinine [Mass ratio] 16.0 mg/mg 10-20 [facility] Work Phone: Laboratory - Coagulationon 0 07-07-2021 aPTT Coag (Bld) [Time] 30.2 s 24.1-36.2 ysabel [facility] Work Phone: [phone] PT Coag (PPP) [Time] 12.7 s 11.7-14.9 os [facility] Work Phone: [phone] Laboratory - Hematology and Cell countson 07-07-2021 Erythrocyte distribution width (RBC) [Entitic vol] 42.6 fL 35.1-43.9 [facility] Work Phone: [phone] Erythrocyte distribution width (RBC) [Ratio] 12.8 % 11.6-14.6 [facility] Work Phone: [phone] Immature granulocytes/100 WBC (Bld) 0.700 % 0.0-0.9 [facility] Work Phone: Comment on above: IG% - Immature Granu locytes (promyelocytes, myelocytes and metamyelocytes) > 1% indicates that a LEFT SHIFT is Present. MCH (RBC) [Entitic mass] 30.4 pg 27.0-32.0 [facility] Work Phone: Nucleated RBC/100 WBC (Bld) [Ratio] 0 % 0-5 [facility] Work Phone: [phone] Laboratory - Miscellaneous t estson 07-07-2021 Service comment (Unsp spec) [Interp] Comment . [facility] Work Phone: Comment on above: Results do not indic ate the presence of a LupusAnticoagulant: abnormal high screening results (PTT-LA,dRVVT, mixing studies), may be due to medication (heparin,warfarin, aspirin), Factor inhibitors, anticardiolipinantibodies, or poor specimen integrity.Performed at: [address] [id number] Director: Rj Carmona MD, Phone: [phone] MCHC Auto (RBC) [Mass/Vol]on 07-07-2021 MCHC (RBC) [Mass/Vol] 33.0 g/dL 32-36 [facility] Work Phone: Nitrite Test strip Ql (U)on 07-07-2021 Nitrite Ql (U) Negative Negative [facility] Work Phone: No Panel Informationon 07-07 Estimated GFR (MDRD) Amer 92 mL/min >60 [facility] Work Phone: Comment on above: GFR Calc Estimated GFR (MDRD) Non-Af Amer 76 mL/min >60 [facility] Work Phone: Comment on above: Non- GFR Calc Hepatitis B Surface Antigen Non-Reactive Nonreactive [facility] Work Phone: [phone] Hepatitis C Antibody Non-Reactive Nonreactive [facility] Work Phone: Comment on above: Non Reactive: < 0.8 Equivocal: >/= 0.8 to < 1.0 Reactive: >/= 1.0The CDC recommends that a reactive/equivocal HCV antibody result be followed up by the HCV Nucleic Acid Amplificationtest (016073) Miscellaneous Test Comment MAILED SPECIMEN [facility] Work Phone: Platelets bldon 07-07-2021 Platelets (Bld) [#/Vol] 203 10*3/uL 150-450 [facility] Work Phone: [phone] Protein Test strip Ql (U)on 07-07-2021 Protein Ql (U) Negative Negative [facility] Work Phone: [phone] Serum hepatitis B virus surf noe antibody IgG detectionon 07-07-2021 HBV surface IgG Ql (S) Non-Reactive [facility] Work Phone: Comment on above: Non Reactive: Incons istent with immunity less than <10 mIU/mL Reactive: Consistent with immunity greater than or equal to 10 mIU/mL Serum or plasma albumin nichol urement (mass/volume)on 07-07-2021 Albumin [Mass/Vol] 4.0 g/dL 3.2-5.0 [facility] Work Phone: [phone] Serum or plasma albumin/glob ulin mass ratioon 07-07-2021 Albumin/Globulin [Mass ratio] 1.2 {ratio} 0.9-2.4 [facility] Work Phone: [phone] Serum or plasma calcium nichol urement (mass/volume)on 07-07-2021 Calcium [Mass/Vol] 8.9 mg/dL 8.5-10.1 [facility] Work Phone: [phone] Serum or plasma creatinine m easurement (mass/volume)on 07-07-2021 Creatinine [Mass/Vol] 1.06 mg/dL 0.70-1.30 [facility] Work Phone: [phone] Comment on above: The validity of the calculated GFR & GFRAA in patients over 70 years has not been determined. Clinical correlation is essential. Serum or plasma urea nitroge n measurement (mass/volume)on 07-07-2021 Urea nitrogen [Mass/Vol] 17 mg/dL 7-18 [facility] Work Phone: [phone] Serum or plasma uric acid me asurement (mass/volume)on 07-07-2021 Urate [Mass/Vol] 9.4 mg/dL 3.5-7.2 [facility] Work Phone: [phone] Comment on above: The drugs N-Acetylcy steine and Metamizole may falsely depress this assay. Thin prep Papanicolaou smear with manual screeningon 07-07-2021 Thin prep Papanicolaou smear with manual screening 24 U/L 15-37 [facility] Work Phone: [phone] Thin prep Papanicolaou smear with manual screening 4 5-15 [facility] Work Phone: [phone] Thin prep Papanicolaou smear with manual screening See comment [facility] Work Phone: [phone] Comment on above: TEST RESULT LIMITSLu pus Anticoagulant Comp Dilute Prothrombin Time(dPT) 40.5 sec 0.0-47.6 dPT Confirm Ratio 1.13 Ratio 0.00-1.34 Thrombin Time 18.4 sec 0.0-23.0 Lupus Anticoagulant Reflex PTT-LA 41.1 sec 0.0-51.9 dRVVT 46.1 sec 0.0-47.0 Lupus Reflex Interpretation Comment: No lupus anticoagulant was detected. ___ TESTING PERFORMED AT [facility]. ORIGINAL REPORT ON FILE IN LAB CONTAINS ADDITIONAL TEST SITE INFORMATION. Thin prep Papanicolaou smear with manual screening Not Reportable [facility] Work Phone: Thrombin time in platelet po or plasmaon 07-07-2021 Thrombin time Coag (PPP) [Time] 17.6 sec [facility] Work Phone: Thrombin time Coag (PPP) [Time] Not Reportable [facility] Work Phone: Urine blood detectionon 06-23 RBC Ql (U) Negative Negative [facility] Work Phone: Urine clarityon 07-07-2021 Clarity (U) Clear Clear [facility] Work Phone: Urine color determinationon 07-07-2021 Color (U) Yellow Yellow [facility] Work Phone: Urine creatinine measurement (mass/volume)on 07-07-2021 Creatinine (U) [Mass/Vol] 35.20 mg/dL NO RANGE EST. [facility] Work Phone: Urine glucose detectionon Glucose Ql (U) Normal mg/dl Normal [facility] Work Phone: Urine leukocyte esterase det ection by dipstickon 07-07-2021 Leukocyte esterase Test strip Ql (U) Negative Negative [facility] Work Phone: Urine pHon 07-07-2021 pH (U) 6.5 [pH] 5.0 - 8.0 [facility] Work Phone: Urine protein measurement (m ass/volume)on 07-07-2021 Protein (U) [Mass/Vol] mg/dL 0.0-11.8 [facility] Work Phone: Urine protein/creatinine mas s ratioon 07-07-2021 Protein/Creatinine (U) [Mass ratio] TNP [facility] Work Phone: [phone] Comment on above: Test not performed Urine specific gravity measu rementon 07-07-2021 Specific gravity (U) [Rel density] 1.010 1.002-1.030 [facility] Work Phone: [phone] Urobilinogen Auto test strip Ql (U)on 07-07-2021 Urobilinogen Ql (U) Normal mg/dl Normal [facility] Work Phone: [phone] Erythrocyte sedimentation ra raj 04-21-2021 ESR (Bld) [Velocity] 12 mm/h 0-20 [facility] Work Phone: No Panel Informationon 04-21 Anti-Nuclear Antibody Screen Positive Negative [facility] Work Phone: Comment on above: Performed at: [address] [id number] Director: Ankit Vernon PhD, Phone: [phone] C-Reactive Protein High Sensitivity 1.14 mg/L [facility] Work Phone: Comment on above: Low Relative Risk of CVD <1.0 mg/L Average Relative Risk of CVD 1.0 - 3.0 mg/L High Relative Risk of CVD >3.0 mg/L Serum or plasma C reactive p rotein measurement (mass/volume)on 04-21-2021 CRP [Mass/Vol] mg/L 0.0-3.0 [facility] Work Phone: Comment on above: C-Reactive Protein ( CRP) provides useful information for thediagnosis, therapy and monitoring of inflammatory processesand associated diseases. For the evaluation of Relative Riskfor Cardiovascular Disease, a High Sensitivity CRP (HSCRP)should be ordered. Serum rheumatoid factor dete ctionon 04-21-2021 Rheumatoid factor Ql (S) < 10.0 IU/mL <15 [facility] Work Phone: Migel 07-08-2020 CNPN Telephone (PODIWS) RAMANA BLANCO ([id number]) 1960 M Date Time Provider Department 07/08/20 MARIA E WITT During your visit today, we recorded the following information about you: Marisabel Ramos Ma 07/08/2020 1:56 PM Signed ----- Message from Maria E Witt sent at 07/08/2020 1:31 PM EDT ----- Please call patient to inform him that his circulation appears normal. If he desires removal of toenail, he can schedule procedure BOGDAN Baumann Ma 07/08/2020 1:58 PM Signed Patient informed of information below. Patient voiced understanding. Allergies As of Date: 07/08/2020 Noted Allergy Reaction PENICILLINS 07/01/2020 4 - Hives Date Reviewed: 07/01/2020 Reviewed by: Marisabel Ramos Ma - Fully Assessed Reason for Visit: Results [95] Prescriptions as of 07/08/2020 Sig: VITAMIN D2 ORAL Take by mouth. OLIVE LEAF EXTRACT ORAL Take by mouth. BENADRYL ALLERGY ORAL Take by mouth. CEPHALEXIN 500 MG CAPSULE Take 1 capsule by mouth three* CEPHALEXIN 500 MG CAPSULE Take 1 capsule by mouth three* Problem List As Of Date 07/08/2020 Noted Resolved CERVICALGIA [M54.2] 05/14/2005 TENSION HEADACHE [G44.209] 05/14/2005 LUMB/LUMBOSAC DISC DEGEN [M51.37] 06/18/2006 LUMBOSACRAL NEURITIS NOS [MYH3169] 06/18/2006 Encounter Status:Closed by MARISABEL RAMOS MA on 07/08/20 [facility] CNOVon 07-01-2020 CNOV Office Visit (PODIWS ) RAMANA BLANCO ([id number]) 1960 M Date Time Provider Department 07/01/20 8:30 AM MARIA E WITT PODIWS During your visit today, we recorded the following information about you: Marisabel Ramos Ma 07/01/2020 9:03 AM Signed AMB ROOMING INTAKE FLOWSHEET DATA Risk Screening Do you have concerns about personal safety or safety in the home?: No Pain Pain Level: 6 (6-7/10) Pain Location: Other: See Comment (R hallux) Description: Other: See comment (unable to describe) Frequency: Intermittent Intervention: Relaxation Patient presents with: Right Great Toe - New, Pain Maria E Witt DPM 07/01/2020 9:03 AM Signed Consultation requested by Dr. Keller for an opinion regarding right great toe pain. My final recommendations will be communicated back to the requesting physician by way of shared Medical record or letter to requesting physician via US mail. Initial Podiatric Office Visit: Chief Complaint: This 59 year old male who presents with chief complaint:right great toe pain HPI Patient presents to clinic for evaluation of right hallux. About 3 weeks ago, patient had been experiencing pain to his right great toe just distal to the nail plate. Patient states the toe was very swollen. He states any pressure from his shoe or even his finger would have caused pain. Patient states the pain is slightly improved now. Patient has been soaking the toe in epsom salts and has place oragno on the toe and now he can touch the toe. He still has pain. Patient states the pain is 6-7/10. PAIN EVALUATION 07/01/2020 0827 Pain Level: 6 6-7/10 Pain Location: Other: See Comment R hallux Description: Other: See comment unable to describe Frequency: Intermittent Intervention: Relaxation No results found for: HBA1C PCP: Margarito Keller MD History reviewed. No pertinent past medical history. Current Outpatient Medications Medication Sig - ergocalciferol, vitamin D2, (VITAMIN D2 ORAL) Take by mouth. - OLIVE LEAF EXTRACT ORAL Take by mouth. - diphenhydramine HCl (BENADRYL ALLERGY ORAL) Take by mouth. No current facility-administered medications for this visit. ALLERGIES Allergen Reactions - Penicillins Hives PAST SURGICAL HISTORY Procedure Laterality Date - CYST/MOLE REMOVAL - HERNIA REPAIR HX 1973 - LAMINECTOMY,LUMBAR 1992, 1995 FAMILY HISTORY Problem Relation Age of Onset - Diabetes Mother - Diabetes Maternal Grandmother Social History Tobacco Use - Smoking status: Current Every Day Smoker Packs/day: 1.00 - Smokeless tobacco: Never Used Substance Use Topics - Alcohol use: Yes Comment: occasional - Drug use: Not on file REVIEW OF SYSTEMS GENERAL: Negative for Malaise, significant weight loss, fever RESPIRATORY: Negative for cough, wheezing and shortness of breath CARDIOVASCULAR: Negative for chest pain, leg swelling and palpitations GI: Negative for abdominal discomfort, blood in stools or black stools and change in bowel habits : Negative for dysuria, frequency and incontinence MUSCULOSKELETAL: Negative for joint pain or swelling, back pain, and muscle pain. SKIN: + pain of right great toe HEMATOLOGY/LYMPHOLOGY Negative for prolonged bleeding, bruising easily, and swollen nodes. ENDOCRINE: Negative for cold or heat intolerance, polyuria, polydipsia and goiter. NEURO: negative Physical Exam: Constitutional: Pt is a well developed 59 year old male who is alert, oriented and cooperative Eyes: Following during examination. No redness or drainage. Respiratory: RR normal and nonlabored. Even breathing. No evidence of distress or shortness of breath. Psychology: Patient is engaged during conversation. Normal affect and mood. Does not appear depressed or anxious during encounter. Vascular: Dorsalis pedis and posterior tibial pulses palpable as b/l Capillary Fill time >5 seconds to digits 1-5 b/l Skin temperature warm to cool proximal to distal b/l Hair growth present to digits Neurological: intact light touch/epicritic sensation b/l intact protective sensation no significant neurological deficits Dermatological: Right hallux lateral nail border is ingrowing, swollen, red. There is no drainage present. Webspaces clean and dry 1-4 b/l. Skin appears well hydrated and supple. good color, texture, turgor. No open lesions present. No callosities present. Musculoskeletal/Ortho paedic: Patient has pain to palpation of right hallux lateral nail border Foot type is neutral structurally Radiographs: n/a ASSESSMENT: (B35.1) Onychomycosis (primary encounter diagnosis) (M79.674) Pain in toe of right foot (R09.89) Diminished pulses in lower extremity (L60.0) Ingrowing toenail of right foot PLAN: A review of the patient's PMH and Podiatric physical exam was completed. We discussed the possible etiologies of discolored, (more content not included)... Normal [facility] Ivan Cult/Smr H,S,Non 2020 Ivan Cult/Smr H,S,N Sp. Request/Comment: - Specimen received in sterile container. Smear Result - No fungus seen. Culture Result - No Fungus isolated after 31 days Normal [facility] Comment on above: Performed By: #### [facility] #### [facility] [address] [address] Vital Signs Date Time Vital Sign Value Performing Clinician Aletha rudd 05-09-2022 09:19-0500 Body height 177.[address] Don Price Work Phone: [facility] 05-09-2022 09:19-0500 Body mass index (BMI) [Ratio] 33.7 kg/m2 Dr. Don Price Work Phone: [facility] 05-09-2022 09:19-0500 Body weight 106.[address] Don Price Work Phone: [facility] Encounters Encounter Date Encounter Type Care Provider Facility Start: 11-06-2024 ambulatory Don Price Facility:[facility] Start: 10-02-2024 End: 10-02-[address] Don Price MD Work Phone: [facility] [place] Start: 10-02-2024 End: 10-02-[address] Don Price MD -Laboratory [place] Work Phone: Start: 10-02-2024 End: 10-02-2024 ambulatory Don Price Facility:[facility] Start: 09-24-2024 End: 09-24-[address] Don Price MD Work Phone: -Radiology [facility] Start: 09-24-2024 End: 09-24-[address] Owen Gonzalez MD -Radiology [facility] Work Phone: Start: 09-24-2024 End: 09-24-2024 ambulatory Owen Gonzalez Facility:[facility] Start: 07-30-2024 End: 07-30-[address] Don Price MD Work Phone: [facility] Work Phone: Start: 07-30-2024 End: 07-30-[address] Owen Gonzalez MD -Laboratory Work Phone: Start: 07-30-2024 End: 07-30-2024 ambulatory Owen Gonzalez Facility:[facility] Start: 07-13-2024 End: 07-13-[address] Don Price MD -Laboratory, [place] Work Phone: Start: 07-13-2024 End: 07-13-2024 ambulatory Don Price Facility:[facility] Start: 05-18-2024 End: 05-18-[address] Don Price MD -Laboratory, [place] Work Phone: Start: 05-18-2024 End: 05-18-2024 ambulatory Don Price Facility:[facility] Start: 02-26-2024 End: 02-26-2024 ambulatory Don Price Facility:[facility] Start: 02-28-2023 End: 02-28-2023 ambulatory [facility] Work Phone: Start: 02-28-2023 End: 02-28-2023 Patient encounter procedure [facility]-Radiology, [place] Work Phone: Start: 05-30-2022 End: 05-30-[address] Don Price Work Phone: [facility] Work Phone: Start: 05-30-2022 End: 05-30-[address] [facility] Start: 05-09-2022 End: 05-09-[address] Don Price Work Phone: [facility] Start: 04-27-2022 End: 04-27-[address] Don Price [facility] Start: 02-27-2022 End: 02-27-2022 ambulatory [facility] Work Phone: Start: 02-27-2022 End: 02-27-2022 Patient encounter procedure [facility] Start: 10-05-2021 End: 10-05-2021 Patient encounter procedure [facility] Start: 07-07-2021 End: 07-07-2021 Patient encounter procedure [facility] Start: 04-21-2021 End: 04-21-2021 Patient encounter procedure [facility] Procedures Date Procedure Procedure Detail Performing Clinician Start: 09-24-2024 X-ray of cervical spine Dr. Don Price MD Work Phone: Start: 07-30-2024 Methadone measuremen t, urine Dr. Don Price MD Work Phone: Start: 07-30-[address] Don izquierdo MD Work Phone: Comment on above: Test Ordered: [id number] Compliance Drug Analysis, UrSpecimen Comment: ToxAssure, ToxAssure FLEX or MAT drug [id number] Comment: -Technical component - Data analysis performed atSpecimen Comment: [facility] [place], [address], [place], [place]: [phone]. [phone] Precision Devices Inspector/Tester Steve Carlton MD.Summary Report (Summary) FINAL MX Reference Range: . ==TOXASSURE COMP DRUG ANALYSIS,UR Test Result Flag UnitsDrug Present Hydrocodone 727 ng/mg creat Hydromorphone 369 ng/mg creat Dihydrocodeine 119 ng/mg creat Norhydrocodone 783 ng/mg creat Sources of hydrocodone include scheduled prescription medications. Hydromorphone, dihydrocodeine and norhydrocodone are expected metabolites of hydrocodone. Hydromorphone and dihydrocodeine are also available as scheduled prescription medications. Acetaminophen PRESENT Dextrorphan/Levorphanol PRESENT Dextrorphan is an expected metabolite of dextromethorphan, an jmzw-dgy-xxnxyzk or prescription cough suppressant. Levorphanol is a scheduled prescription medication. Dextrorphan cannot be distinguished from levorphanol by the method used for analysis. Guaifenesin PRESENT Guaifenesin may be administered as an pwng-igr-jygrbsy or prescription drug; it may also be present as a breakdown product of methocarbamol. Test Result Flag Units Ref Range Creatinine 64 mg/dL >=20 =====Declared Medications: Medication list was not provided. For clinical consultation, please call . Performed at: [employer] [address] [id number] Director: Yaneli Lanier [facility], Phone: [phone] at: [facility] [address] [id number] Director: Ankit Vernon PhD, Phone: [phone] Start: 05-18-2024 Measurement of renal function Dr. Don Price MD Work Phone: Comment on above: GFR Calc Start: 02-28-2023 Plain x-ray of hand Start: 02-28-2023 Radiography of foot Start: 02-28-2023 Plain X-ray of shoulder Start: 05-30-2022 Radiologic examinati on of knee Dr. Don Price Work Phone: Start: 04-27-2022 MRI of lumbar spine Dr. Don Price Work Phone: Start: 02-27-2022 X-ray of lumbosacral spine Start: 04-21-2021 Radiologic examinati on of knee Plan of Treatment Date Care Activity Detail Author Start: 07-30-2024 Procedure [facility] Start: 05-09-2022 Patient referral [facility] Work Phone: Nuclear Ab [Presence] in Serum [facility] Work Phone: Patient referral [facility] Work Phone: Payers Date Payer Category Payer Self-pay [id number] 2020 Unknown [id number] Unknown [id number] 2.16.8 [id number] Unknown [id number] 2.16.8 [id number] Unknown [id number] 2.16.8 [id number] Unknown [id number] 2.16.8 [id number] Unknown [id number] 2.16.8 [id number] Unknown [id number] 2.16.8 [id number] Unknown [id number] 2.16.8 [id number] Social History Date Type Detail Facility Start: 09-13-2020 End: 05-09-2022 Tobacco smoking status PRIS Unknown if ever smoked [facility] Start: 1960 Sex Assigned At Male [facility] Start: 05-09-2022 Tobacco smoking stat us PRIS Smokes tobacco daily (finding) [facility] Radiology Diagnostic study note 09-25-2024 Note Date & Type Note Facility 09-25-2024 Radiology Diagnostic study note [facility] Imaging Services [address] [place], [place] [address] Cerv Spine 2 or 3 Views MR#: [id number] Acct: [id number] Name: RAMANA BLANCO Rep #: [id number] : 1960 M 63 From: Betzaida Lopes MD PCP: Dr. Don Price MD Status: REG C DAVY Study:Cerv Spine 2 or 3 Views Date of Exam: 09/24/24 Exam# [id number] Ordering Dr: Abhijeet Gonzalez MD PROCEDURE: CERV SPINE 2 OR 3 VIEWS 09/24/2024 REASON FOR EXAM: SPONDYLOSIS W/O RADICULOPATHY cervical AREA TECHNIQUE: CERV SPINE 2 OR 3 VIEWS COMPARISON: No FINDINGS: Disc space narrowing, and osteophyte formation, C5 through C7. Mild and diffusefacet arthritis. 3 mm retrolisthesis, C5 on C6 and also C6 on C7. No acute bone, soft tissue, or lung pathology. RAD/Cerv Spine 2 or 3 Views IMPRESSION: Cervical spine degeneration Disclaimer: Reading Location: [place] [address] CC: Dr. Owen Gonzalez MD; Dr. Don Price MD ~ Night Manager: Signed [facility] Progress note 07-01-2020 Note Date & Type Note Facility 07-01-2020 Note HNO ID: [id number] Author: Maria E Witt Service: ? Author Type: Physician Type: Progress Notes Filed: 07/01/2020 9:03 AM Note Text: Consultation requested by Dr. Keller for an opinion regarding right great toe pain. My final recommendations will be communicated back to the requesting physician by way of shared Medical record or letter to requesting physician via US mail. Initial Podiatric Office Visit: Chief Complaint: This 59 year old male who presents with chief complaint:right great toe pain HPI Patient presents to clinic for evaluation of right hallux. About 3 weeks ago, patient had been experiencing pain to his right great toe just distal to the nail plate. Patient states the toe was very swollen. He states any pressure from his shoe or even his finger would have caused pain. Patient states the pain is slightly improved now. Patient has been soaking the toe in epsom salts and has place oragno on the toe and now he can touch the toe. He still has pain. Patient states the pain is 6-7/10. PAIN EVALUATION 07/01/2020 0827 Pain Level: 6 6-7/10 Pain Location: Other: See Comment R hallux Description: Other: See comment unable to describe Frequency: Intermittent Intervention: Relaxation No results found for: HBA1C PCP: Margarito Keller MD History reviewed. No pertinent past medical history. Current Outpatient Medications Medication Sig - ergocalciferol, vitamin D2, (VITAMIN D2 ORAL) Take by mouth. - OLIVE LEAF EXTRACT ORAL Take by mouth. - diphenhydramine HCl (BENADRYL ALLERGY ORAL) Take by mouth. No current facility-administered medications for this visit. ALLERGIES Allergen Reactions - Penicillins Hives PAST SURGICAL HISTORY Procedure Laterality Date - CYST/MOLE REMOVAL - HERNIA REPAIR HX 1973 - LAMINECTOMY,LUMBAR 1992, 1995 FAMILY HISTORY Problem Relation Age of Onset - Diabetes Mother - Diabetes Maternal Grandmother Social History Tobacco Use - Smoking status: Current Every Day Smoker Packs/day: 1.00 - Smokeless tobacco: Never Used Substance Use Topics - Alcohol use: Yes Comment: occasional - Drug use: Not on file REVIEW OF SYSTEMS GENERAL: Negative for Malaise, significant weight loss, fever RESPIRATORY: Negative for cough, wheezing and shortness of breath CARDIOVASCULAR: Negative for chest pain, leg swelling and palpitations GI: Negative for abdominal discomfort, blood in stools or black stools and change in bowel habits : Negative for dysuria, frequency and incontinence MUSCULOSKELETAL: Negative for joint pain or swelling, back pain, and muscle pain. SKIN: + pain of right great toe HEMATOLOGY/LYMPHOLOGY Negative for prolonged bleeding, bruising easily, and swollen nodes. ENDOCRINE: Negative for cold or heat intolerance, polyuria, polydipsia and goiter. NEURO: negative Physical Exam: Constitutional: Pt is a well developed 59 year old male who is alert, oriented and cooperative Eyes: Following during examination. No redness or drainage. Respiratory: RR normal and nonlabored. Even breathing. No evidence of distress or shortness of breath. Psychology: Patient is engaged during conversation. Normal affect and mood. Does not appear depressed or anxious during encounter. Vascular: Dorsalis pedis and posterior tibial pulses palpable as b/l Capillary Fill time >5 seconds to digits 1-5 b/l Skin temperature warm to cool proximal to distal b/l Hair growth present to digits Neurological: intact light touch/epicritic sensation b/l intact protective sensation no significant neurological deficits Dermatological: Right hallux lateral nail border is ingrowing, swollen, red. There is no drainage present. Webspaces clean and dry 1-4 b/l. Skin appears well hydrated and supple. good color, texture, turgor. No open lesions present. No callosities present. Musculoskeletal/Orthopaedic: Patient has pain to palpation of right hallux lateral nail border Foot type is neutral structurally Radiographs: n/a ASSESSMENT: (B35.1) Onychomycosis (primary encounter diagnosis) (M79.674) Pain in toe of right foot (R09.89) Diminished pulses in lower extremity (L60.0) Ingrowing toenail of right foot PLAN: A review of the patient's PMH and Podiatric physical exam was completed. We discussed the possible etiologies of discolored, dystrophic, and thickened nails including fungus, yeast, mold as well as in some instances, prior trauma, or mechanical causes such as repetitive microtrauma in shoe gear. We discussed topical medication for discolored toenails which has very low success but no major side effects. We discussed oral medication. Patient will need hepatic testing prior to use. Patient informed of risks associated with Lamisil. We discussed removal of toenails. I discussed the primary problem that is the ingrowing toenail. I discussed optiosn not limited to avulsion vs matrixectomy. He does have pa (more content not included)... [facility] Progress note 07-01-2020 Note Date & Type Note Facility 07-01-2020 Note HNO ID: [id number] Author: Marisabel Ramos Ma Service: ? Author Type: ? Type: Progress Notes Filed: 07/01/2020 9:03 AM Note Text: AMB ROOMING INTAKE FLOWSHEET DATA Risk Screening Do you have concerns about personal safety or safety in the home?: No Pain Pain Level: 6 (6-7/10) Pain Location: Other: See Comment (R hallux) Description: Other: See comment (unable to describe) Frequency: Intermittent Intervention: Relaxation Patient presents with: Right Great Toe - New, Pain [facility] Evaluation note Note Date & Type Note Facility Evaluation note No assessment information availa ble [facility] Work Phone: Evaluation note Note Date & Type Note Facility Evaluation note Diagnosis Onset Date DDD (degenerative disc disease), lumbar acute S/P lumbar laminectomy acute [facility] Work Phone: Reason for referral (narrative) Note Date & Type Note Facility Reason for referral (narrative) No reason for referral information available [facility] Work Phone: Summary Purpose Family History No Family History Records FoundNo Family History Records Found Advance Directives No Advanced Directives Records Found Advance Directive Response Recorded Date/ Time Living Will No September 13, 2020 7:41am Power of Board Of Directors No September 13 7:41am Advance Directive Response Recorded Date/ Time Living Will No September 13, 2020 6:41am Power of Board Of Directors No September 13 6:41am Chief Complaint and Reason for Visit Chief Complaint SWELLING OF BOTH MENDOZA DS, KNEE PAIN AVISE BOX- PAIN- COPY PCP Chief Complaint 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 PAIN- COPY PCP Chief Complaint LABS AND XRAY- BACK PAIN Chief Complaint LABS AND XRAY- BACK PAIN BACK PAIN LUMBER SPINE Reason for Visit DDD (degenerative di sc disease), lumbar S/P lumbar laminectomy Chief Complaint XRAY Chief Complaint Admit Date GOUT July 13, 2024 4:2 4pm Chief Complaint Admit Date GOUT July 13, 2024 4:2 4pm XRAY September 24, 2024 2:08p m Chief Complaint Admit Date GOUT July 13, 2024 4:2 4pm XRAY September 24, 2024 2:08p m FASTING October 02, 2024 12:3 2pm Additional Source Comments (unrecognized sect ion and content) No Status Records FoundNo Status Records Found INFORMATION SOURCE (unrecogn ized section and content) DATE CREATED AUTHOR 04/23/2021 [facility] DATE CREATED AUTHOR AUTHOR'S ORGANIZ ATION 11/01/2024 [facility] Goals (unrecognized section and content) Goals may be documented in a n alternate sectionGoals may be documented in an alternate sectionGoals may be documented in an alternate sectionGoals may be documented in an alternate sectionGoals may be documented in an alternate sectionGoals may be documented in an alternate sectionGoals may be documented in an alternate sectionGoals may be documented in an alternate section Care Teams (unrecognized sec tion and content) Team Status: Active Member Role Status Dates Dr. Don Price MD Family Provider Active Dr. Don Price MD Primary Care Provider Active Team Status: Inactive Member Role Status Dates Dr. Don Price MD Primary Care Provider, Referring Provider Active Dr. Gerald Sorensen , DO Attending Provider Active Team Status: Inactive Member Role Status Dates Dr. Don Price MD Primary Care Provi kayode, Attending Provider, Referring Provider Active Team Status: Inactive Member Role Status Dates Dr. Don Price MD Primary Care Provider, Attending Provider Active Team Status: Inactive Member Role Status Dates Dr. Don Price MD Primary Care Provider Active MARLENE JACKSON MD Attending Provider, Referring Pro vider Active Team Status: Inactive Member Role Status Dates Dr. Don Price MD Primary Care Provider Active Start: May 18, 2024 End: May 18, 2024 Dr. Don Price MD Attending Provider Active Start: May 18, 2024 End: May 18, 2024 Dr. Don Price MD Referring Provider Active Start: May 18, 2024 End: May 18, 2024 Team Status: Inactive Member Role Status Dates Dr. Don Price MD Primary Care Provider Active Start: July 13, 2024 End: July 13, 2024 Dr. Don Price MD Attending Provider Active Start: July 13, 2024 End: July 13, 2024 Dr. Don Price MD Referring Provider Active Start: July 13, 2024 End: July 13, 2024 Team Status: Inactive Member Role Status Dates Dr. Don Price MD Primary Care Provider Active Start: July 30, 2024 End: July 30, 2024 Dr. Owen Gonzalez MD Attending Provider Active Start: July 30, 2024 End: July 30, 2024 Dr. Owen Gonzalez MD Referring Provider Active Start: July 30, 2024 End: July 30, 2024 Team Status: Active Member Role/Relationship Status Dates Dr. Don Price MD Family Provider Active Dr. Don Price MD Primary Care Provider Active Team Status: Inactive Member Role/Relationship Status Dates Dr. Don Price MD Primary Care Provider Active Start: July 13, 2024 End: July 13, 2024 Dr. Don Price MD Attending Provider Active Start: July 13, 2024 End: July 13, 2024 Dr. Don Price MD Referring Provider Active Start: July 13, 2024 End: July 13, 2024 Team Status: Inactive Member Role/Relationship Status Dates Dr. Don Price MD Primary Care Provider Active Start: July 30, 2024 End: July 30, 2024 Dr. Owen Gonzalez MD Attending Provider Active Start: July 30, 2024 End: July 30, 2024 Dr. Owen Gonzalez MD Referring Provider Active Start: July 30, 2024 End: July 30, 2024 Team Status: Inactive Member Role/Relationship Status Dates Dr. Don Price MD Primary Care Provider Active Start: September 24, 2024 End: September 24, 2024 Dr. Owen Gonzalez MD Attending Provider Active Start: September 24, 2024 End: September 24, 2024 Dr. Owen Gonzalez MD Referring Provider Active Start: September 24, 2024 End: September 24, 2024 Team Status: Inactive Member Role/Relationship Status Dates Dr. Don Price MD Primary Care Provider Active Start: October 02, 2024 End: October 02, 2024 Dr. Don Price MD Attending Provider Active Start: October 02, 2024 End: October 02, 2024 Dr. Don Price MD Referring Provider Active Start: October 02, 2024 End: October 02, 2024 FOR RECORDS PERTAINING TO PATIENTS WHO ARE OR HAVE BEEN ENROLLED IN A CHEMICAL DEPENDENCY/SUBSTANCEABUSE PROGRAM, SOME INFORMATION MAY BE OMITTED. This clinical summary was aggregated from multiple sources. Caution should be exercised in using it in the provision of clinical care. This summary normalizes information from multiple sources, and as a consequence, information in this document may materially change the coding, format and clinical context of patient data. In addition, data may be omitted in some cases. CLINICAL DECISIONS SHOULD BE BASED ON THE PRIMARY CLINICAL RECORDS. [facility] [employer] [facility]. provides no warranty or guarantee of the accuracy or completeness of information in this document.
== END | disposition home or self-care (01) ==
LOC: CT 18:04
PROVIDERS: PCP Family Medicine; Referring Provider Family Medicine; Visit Provider Family Medicine
DX: F17.200 Nicotine dependence, unspecified, uncomplicated (principal)
CPT/HCPCS: 71271

== ENCOUNTER → 2024-12-17 | Outpatient (CLI) | payer OTHER, SELFPAY ==
--- NOTE | 2024-12-17 16:56 | RAD_ITS ---
PROCEDURE: KNEE 4 OR MORE VIEWS 12/17/2024 REASON FOR EXAM: Pain and stiffness TECHNIQUE: Procedure Code: RADKN Modality: DX Procedure: KNEE 4 OR MORE VIEWS Laterality: Right COMPARISON: None FINDINGS: Bones: No fracture or suspicious osseous lesion Joints: Joint spaces well-preserved Effusion: No demonstrated effusion Soft tissues: Chondrocalcinosis noted in the medial and lateral compartments Other: Small spur on the anterior patella suggests quadriceps tendinitis RAD/Knee 4 or More Views IMPRESSION: No demonstrated fracture or joint space abnormality Chondrocalcinosis Reading Location: [id number]
--- NOTE | 2024-12-17 17:05 | RAD_ITS ---
PROCEDURE: KNEE 4 OR MORE VIEWS 12/17/2024 REASON FOR EXAM: OA Pain and stiffness TECHNIQUE: Procedure Code: RADKN Modality: DX Procedure: KNEE 4 OR MORE VIEWS Laterality: Left COMPARISON: None FINDINGS: Bones: No fracture or suspicious osseous lesion Joints: Mild medial compartment arthrosis, preservation of the lateral and posterior patellar compartments Effusion: No joint effusion Soft tissues: No foreign body there is evidence of chondrocalcinosis in the medial and lateral joint spaces Other: RAD/Knee 4 or More Views IMPRESSION: Mild narrowing of the medial joint space compartment with chondrocalcinosis in the medial and lateral compartments, no fracture or suspicious osseous lesion Reading Location: [id number]
--- OUTSIDE RECORDS SUMMARY | 2024-12-17 17:42 | XMS RPT_ITS | CCD ---
Author Organization [facility] Care Team Providers Care Engineer Internship Name Role Phone Dr. Don Price Primary Care Provider Dee, Dr. Ochoa Referring Provider Dr. Gerald Sorensen Attending Provider Dee FREEDMAN, Dr. Ochoa Primary Care Provider Dee FREEDMAN, Dr. Ochoa Attending Provider Dee FREEDMAN, Dr. Ochoa Referring Provider Carlos FREEDMAN, Dr. Weaver Attending Provider Carlos FREEDMAN, Dr. Weaver Referring Provider Dee FREEDMAN, Dr. Ochoa Primary Care Provider eDe FREEDMAN, Dr. Ochoa Attending Provider Dee FREEDMAN, Dr. Ochoa Referring Provider Dee FREEDMAN, Dr. Ochoa Primary Care Provider Dee FREEDMAN, Dr. Ochoa Attending Provider Dee FREEDMAN, Dr. Ochoa Referring Provider Owen Gonzalez Attending Unavailable Basali, Owen Referring Unavailable Price, Don Primary Care Unavailable Basali, Owen Attending Unavailable Basali, Owen Referring Unavailable Price, Don Primary Care Unavailable Price, Don Attending Unavailable Price, Don Referring Unavailable Price, Don Primary Care Unavailable Price, Don Attending Unavailable Price, Don Referring Unavailable Price, Don Primary Care Unavailable Price, Don Attending Unavailable Price, Don Referring Unavailable Price, Don Primary Care Unavailable Price, Don Attending Unavailable Price, Don Referring Unavailable Price, Don Primary Care Unavailable Taran Gay Attending Unavailable Price, Don Referring Unavailable Price, Don Primary Care Unavailable Allergies Allergy Classification Reported Allergen(s) Allergy Type Date of Onset Reaction(s) Facility (10 sources) Penicillins; Translations: [Penicillins] Allergy to substance 1 [facility] (6 sources) Lisinopril Drug Allergy 3 [facility] (4 sources) levoFLOXacin Drug Allergy 4 [facility] (1 source) levoFLOXacin Drug Allergy 4 [facility] (1 source) Lisinopril Drug Allergy 4 [facility] Medications Current Medications Medication Drug Class(es) Dates Sig (Normalized) Sig (Original) acetaminophen 325 mg / HYDROcodone bitartrate 5 mg oral tablet (9 sources) Opioid Agonist Start: 09-13-2020 take 1 [...] 2020 ascorbic acid 1000 mg oral capsule (6 sources) Vitamin C Start: 05-09-2022 take 1 [...] 2022 1:00am azithromycin 250 mg oral tablet (4 sources) Macrolide Antimicrobial Start: 02-26-2024 Azithromycin 250 mg tablet Active 250 mg PO .COMPLEX 12 0 February 26, 2024 1:00am 2 tablets (500 mg) on day 1, then 1 tablet daily on days 2 through 11 cholecalciferol 0.025 mg oral capsule (6 sources) Vitamin D Start: 05-09-2022 take 1 capsule by mouth once daily Cholecalciferol (Vitamin D3) 25 mcg (1,000 unit) capsule Active 25 ug PO DAILY May 09, 2022 1:00am losartan potassium 50 mg oral tablet (6 sources) Angiotensin 2 Receptor Pearl Start: 05-09-2022 take 1 tablet by mouth once daily Losartan 50 mg tablet Active 50 mg PO DAILY May 09, 2022 1:00am vitamin e 450 mg oral capsule (6 sources) Start: 05-09-2022 take 1 capsule by mouth once daily Vitamin E (Dl, Acetate) 450 mg (1,000 unit) capsule Active 450 mg PO DAILY May 09, 2022 1:00am Completed/Discontinued Medications Medication Drug Class(es) Dates Sig (Normalized) Sig (Original) methylPREDNISolone 4 mg oral tablet (9 sources) Corticosteroid Start: End: 4 Methylprednisolone 4 MG tablets,dose pack Discontinued 4 mg PO DIRECTED 1 September 13, 2020 12:00am February 26, 2024 6:08pm Problems Problem Classification Problem Date Documented Date Episodic/Chronic Essential hypertension (5 sources) Hypertensive disorder; Translations: [Essential (primary) hypertension] Onset: 10-08-2024 02-26-2024 Chronic Gout and other crystal arthropathies (1 source) Gout, unspecified; Translations: [Gout, unspecified] Onset: 07-17-2024 Chronic Osteoarthritis (4 sources) Osteoarthritis; Translations: [Unspecified osteoarthritis, unspecified site] 02-26-2024 Chronic Residual codes; unclassified (6 sources) History of lumbar laminectomy; Translations: [Other specified postprocedural states] 05-09-2022 Episodic Residual codes; unclassified (1 source) Other specified postprocedural states; Translations: [Other postprocedural status] 05-09-2022 Episodic Spondylosis; intervertebral disc disorders; other back problems (14 sources) Lumbar spondylosis; Translations: [Spondylosis without myelopathy or radiculopathy, lumbar region] Onset: 10-02-2024 05-09-2022 Chronic Substance-related disorders (2 sources) Nicotine dependence, unspecified, uncomplicated; Translations: [Opioid dependence, uncomplicated] Onset: 08-04-2024 Chronic Results Test Name Value Interpretation Reference Range Facil ity Low Dose CT Lung Screeningon 11-06-[address] Lung Screening [facility] [address] [place], [place] [address] Low Dose CT Lung Screening MR#: [id number] Acct: [id number] Name: RAMANA BLANCO Rep #: [id number] : 1960 M 63 From: Mateo perez MD PCP: Dr. Don Price MD Status: REG CLI Study: Low Dose CT Lung Screening Date of Exam: 11/06 Exam# [id number] Ordering Dr: Don Price MD PROCEDURE: LOW DOSE CT LUNG SCREENING 11/06/2024 REASON FOR EXAM: SMOKER Patient has smoked 1 pack per day for 16 years. TECHNIQUE: LOW DOSE CT LUNG SCREENING Coronal and Sagittal reconstruction series were provided. One or more dose reduction techniques were used (e.g., Automated exposure control, adjustment of the mA and/or kV according to patient size, use of iterative reconstruction technique). REFERENCE LINK: [employer] Lung-RADS RADIATION DOSE SUMMARY: CTDlvol: 3.02 mGy DLP: 113.62 mGycm COMPARISON: None FINDINGS: PULMONARY NODULES: (Only nodules >3mm are reported) Nodules described below are on series 1 unless otherwise specified. Pulmonary Nodules: No suspicious nodules are seen. Hardware:None Lymph Nodes:No suspicious lymph nodes are present. Heart and Vasculature:The heart is nonenlarged. Atherosclerotic plaque formation of the aortic arch. Coronary Artery Calcifications: Present Lungs and Airways: Mild emphysematous changes are present. Pleura:Unremarkable Upper Abdomen:Unremarkable Bones:Degenerative changes of the thoracic spine. CT/Low Dose CT Lung Screening IMPRESSION: No suspicious pulmonary nodule seen. Coronary artery calcification (CAC) is is absent Lung-RADS Category: 2 BENIGN (BASED ON IMAGING FEATURES OR INDOLENT BEHAVIOR). RECOMMEND 12-MONTH SCREENING LDCT. Other Significant Findings: Reading Location: [id number] CC: Dr. Don Price MD Slab Polisher: Signed Normal [facility] Anion gap in Serum or Plasma Ordered By: Don Price on 10-02-2024 Anion gap [Moles/Vol] 12 mmol/L - [facility] BUN/creatinine ratioOrdered By: Don Price on 10-02-2024 Urea nitrogen/Creatinine [Mass ratio] 13.6 mg/mg 10- [facility] Bilirubin, totalOrdered By: Don Price on 10-02-2024 Bilirubin [Mass/Vol] 0.58 mg/dL 0.00-1.30 [facility] Calculated very low density lipoprotein (VLDL) cholesterol measurementOrdered By: Don Price on 10-02-2024 Calculated very low density lipoprotein (VLDL) cholesterol measurement 31 mg/dL 5-40 [facility] Carbon dioxide, total [Moles /volume] in Central venous bloodOrdered By: Don Price on 10-02-2024 CO2 [Moles/Vol] 24.7 mmol/L 21.0-32.0 [facility] Chloride assayOrdered By: Jose Price on 10-02-2024 Chloride [Moles/Vol] 103 mmol/L 98-108 [facility] Comprehensive Metabolic Prof ilon 10-02-2024 Albumin [Mass/Vol] 4.5 g/dL Normal 3.4-4.8 [facility] Comment on above: Performed By: #### L 501.9520, L500.4050, L500.4100, L509.3001, L501.9985 #### [facility] [address] [place], [address] Albumin/Globulin [Mass ratio] 1.7 {ratio} Normal 0.9-2.4 [facility] Comment on above: Performed By: #### L 501.9520, L500.4050, L500.4100, L509.3001, L501.9985 #### [facility] [address] [place], [address] ALK PHOS 71 U/L Normal 40-129 [facility] Comment on above: Performed By: #### L 501.9520, L500.4050, L500.4100, L509.3001, L501.9985 #### [facility] [address] [place], [address] ALT [Catalytic activity/Vol] 44 U/L Normal <=46 [facility] Comment on above: Performed By: #### L 501.9520, L500.4050, L500.4100, L509.3001, L501.9985 #### [facility] [address] [place], [address] AST [Catalytic activity/Vol] 39 U/L High <=37 [facility] Comment on above: Performed By: #### L 501.9520, L500.4050, L500.4100, L509.3001, L501.9985 #### [facility] [address] [place], [address] Bilirubin [Mass/Vol] 0.58 mg/dL Normal 0.00-1.30 [facility] Comment on above: Performed By: #### L 501.9520, L500.4050, L500.4100, L509.3001, L501.9985 #### [facility] [address] [place], [address] BUN/CRE 13.6 RATIO Normal 10-20 [facility] Comment on above: Performed By: #### L 501.9520, L500.4050, L500.4100, L509.3001, L501.9985 #### [facility] [address] [place], [address] Calcium [Mass/Vol] 9.9 mg/dL Normal 7.6-11.0 [facility] Comment on above: Performed By: #### L 501.9520, L500.4050, L500.4100, L509.3001, L501.9985 #### [facility] [address] [place], [address] Chloride [Moles/Vol] 103 mmol/L Normal 98-108 [facility] Comment on above: Performed By: #### L 501.9520, L500.4050, L500.4100, L509.3001, L501.9985 #### [facility] [address] [place], [address] CO2 [Moles/Vol] 24.7 mmol/L Normal 21.0-32.0 [facility] Comment on above: Performed By: #### L 501.9520, L500.4050, L500.4100, L509.3001, L501.9985 #### [facility] [address] [place], [address] Creatinine [Mass/Vol] 1.07 mg/dL Normal 0.70-1.20 [facility] Comment on above: Performed By: #### L 501.9520, L500.4050, L500.4100, L509.3001, L501.9985 #### [facility] [address] [place], [address] GAP 12 Normal 5-15 [facility] Comment on above: Performed By: #### L 501.9520, L500.4050, L500.4100, L509.3001, L501.9985 #### [facility] [address] [place], [address] GFR/1.73 sq M.predicted among non-blacks MDRD (S/P/Bld) [Vol rate/Area] 78 mL/min/{1.73_m2} Normal >60 [facility] Comment on above: Result Comment: mL/m in/1.73m2 CKD-EPI Creatinine Equation (2020) Performed By: #### L 501.9520, L500.4050, L500.4100, L509.3001, L501.9985 #### [facility] [address] [place], [address] Globulin (S) [Mass/Vol] 2.7 g/dL Normal 2.2-4.2 [facility] Comment on above: Performed By: #### L 501.9520, L500.4050, L500.4100, L509.3001, L501.9985 #### [facility] [address] [place], [address] Glucose [Mass/Vol] 87 mg/dL Normal 70-99 [facility] Comment on above: Performed By: #### L 501.9520, L500.4050, L500.4100, L509.3001, L501.9985 #### [facility] [address] [place], [address] Potassium [Moles/Vol] 4.0 mmol/L Normal 3.3-5.1 [facility] Comment on above: Performed By: #### L 501.9520, L500.4050, L500.4100, L509.3001, L501.9985 #### [facility] [address] [place], [address] Sodium [Moles/Vol] 140 mmol/L Normal 133-145 [facility] Comment on above: Performed By: #### L 501.9520, L500.4050, L500.4100, L509.3001, L501.9985 #### [facility] [address] [place], [address] T PROT 7.2 g/dL Normal 5.9-8.4 [facility] Comment on above: Performed By: #### L 501.9520, L500.4050, L500.4100, L509.3001, L501.9985 #### [facility] [address] [place], [address] Urea nitrogen [Mass/Vol] 15 mg/dL Normal 4-19 [facility] Comment on above: Performed By: #### L 501.9520, L500.4050, L500.4100, L509.3001, L501.9985 #### [facility] [address] [place], [address] Glomerular filtration rate ( GFR) estimation/1.73 sq m using serum, plasma, or whole bOrdered By: Don Price on 10-02-2024 GFR/1.73 sq M.predicted among non-blacks MDRD (S/P/Bld) [Vol rate/Area] 78 mL/min/{1.73_m2} >60 [facility] Comment on above: mL/min/1.73m2 CKD-EP I Creatinine Equation (2020) Hemoglobin A1con 10-02-2024 HbA1c (Bld) [Mass fraction] 5.2 % Normal <=5.6 [facility] Comment on above: Result Comment: Norm al < 5.7 % Prediabetic 5.7 - 6.4 % Diabetic >or= 6.5 % Please note range changes. Performed By: #### L 501.9520, L500.4050, L500.4100, L509.3001, L501.9985 #### [facility] [address] [place], [address] Hemoglobin A1c percentageOrd ered By: Don Price on 10-02-2024 HbA1c (Bld) [Mass fraction] 5.2 % <5.7 [facility] Comment on above: Normal < 5.7 % Predi abetic 5.7 - 6.4 % Diabetic >or= 6.5 % Please note range changes. L509.3001on 10-02-2024 Testosterone [Mass/Vol] 480.00 ng/dL Normal 300-720 [facility] Comment on above: Performed By: #### L 500.4100, L500.2500 #### [facility] [address] [place], [place], [address] LDL calc ser/plasOrdered By: Don Price on 10-02-2024 Cholesterol in LDL [Mass/Vol] 132 mg/dL [facility] Comment on above: Oafkhnacbc=307-801 m g/dL & Higher Fmjd=748 mg/dL or greater Laboratory - Chemistry and C hemistry - challengeOrdered By: Don Price on 10-02-2024 AST [Catalytic activity/Vol] 39 U/L High <38 [facility] Testosterone [Mass/Vol] 480.00 ng/dL 300-720 [facility] Lipid Profileon 10-02-2024 CHOL:HDL 5.94 Normal [facility] Comment on above: Performed By: #### L 501.9520, L500.4050, L500.4100, L509.3001, L501.9985 #### [facility] [address] [place], [address] Cholesterol [Mass/Vol] 196 mg/dL Normal <=200 [facility] Comment on above: Result Comment: Chol esterol level, Desirable <200 mg/dL Borderline high cholesterol 200-239 mg/dL High cholesterol >=240 mg/dL Recommendations of the NCEP Adult Treatment Panel for the following risk-cutoff thresholds for the [place] population. Performed By: #### L 501.9520, L500.4050, L500.4100, L509.3001, L501.9985 #### [facility] [address] [place], [address] Cholesterol in HDL [Mass/Vol] 33 mg/dL Low [facility] Comment on above: Result Comment: Manisha onal Cholesterol Education Program (NCEP) guidelines: <40 mg/dL: Low HDL-cholesterol (major risk factor for CHD) >= 60 mg/dL: High HDL-cholesterol (negative risk factor for CHD) HDL-cholesterol is affected by a number of factors, e.g. smoking, exercise, hormones, sex and age. Performed By: #### L 501.9520, L500.4050, L500.4100, L509.3001, L501.9985 #### [facility] [address] [place], [address] Cholesterol in LDL [Mass/Vol] 132 mg/dL Normal [facility] Comment on above: Result Comment: Bord tkmnjl=893-163 mg/dL Higher Tywr=679 mg/dL or greater Performed By: #### L 501.9520, L500.4050, L500.4100, L509.3001, L501.9985 #### [facility] [address] [place], [address] Cholesterol in VLDL [Mass/Vol] 31 mg/dL Normal 5-40 [facility] Comment on above: Performed By: #### L 501.9520, L500.4050, L500.4100, L509.3001, L501.9985 #### [facility] [address] [place], [address] Triglyceride [Mass/Vol] 155 mg/dL Normal [facility] Comment on above: Result Comment: The drugs N-Acetylcysteine and Metamizole may falsely depress this assay. Normal range: <150 mg/dL Borderline High: 150-199 mg/dL High: 200-499 mg/dL Very High: >500 mg/dL Performed By: #### L 501.9520, L500.4050, L500.4100, L509.3001, L501.9985 #### [facility] [address] [place], [address] Potassium measurement (mass/ volume)Ordered By: Don Price on 10-02-2024 Potassium (Unsp spec) [Mass/Vol] 4.0 mmol/L 3.3-5.1 [facility] Screening total cholesterol/ high density lipoprotein (HDL) cholesterol ratioOrdered By: Don Price on 10-02-2024 Cholesterol.total/Chol esterol in HDL [Mass ratio] 5.94 {ratio} [facility] Serum creatinine measurement (mass/volume)Ordered By: Don Price on 10-02-2024 Creatinine [Mass/Vol] 1.07 mg/dL 0.70-1.20 [facility] Serum globulin measurementOr dered By: Don Price on 10-02-2024 Globulin (S) [Mass/Vol] 2.7 g/dL 2.2-4.2 [facility] Serum glucose measurement (m ass/volume)Ordered By: Don Price on 10-02-2024 Glucose [Mass/Vol] 87 mg/dL 70-99 [facility] Serum or plasma alanine smith otransferase (ALT) measurementOrdered By: Don Price on 10-02-2024 ALT [Catalytic activity/Vol] 44 U/L <47 [facility] Serum or plasma albumin nichol urement (mass/volume)Ordered By: Don Price on 10-02-2024 Albumin [Mass/Vol] 4.5 g/dL 3.4-4.8 [facility] Serum or plasma albumin/glob ulin mass ratioOrdered By: Don Price on 10-02-2024 Albumin/Globulin [Mass ratio] 1.7 {ratio} 0.9-2.4 [facility] Serum or plasma alkaline michel sphatase measurementOrdered By: Don Price on 10-02-2024 ALP [Catalytic activity/Vol] 71 U/L 40-129 [facility] Serum or plasma calcium nichol urement (mass/volume)Ordered By: Don Price on 10-02-2024 Calcium [Mass/Vol] 9.9 mg/dL 7.6-11.0 [facility] Serum or plasma cholesterol in HDL measurement (mass/volume)Ordered By: Don Price on 10-02-2024 Cholesterol in HDL [Mass/Vol] 33 mg/dL Low >40 [facility] Comment on above: National Cholesterol Education Program (NCEP) guidelines:<40 mg/dL: Low HDL-cholesterol (major risk factor for CHD)>= 60 mg/dL: High HDL-cholesterol (negative risk factor for CHD)HDL-cholesterol is affected by a number of factors, e.g. smoking, exercise, hormones, sex and age. Serum or plasma cholesterol measurement (mass/volume)Ordered By: Don Price on 10-02-2024 Cholesterol [Mass/Vol] 196 mg/dL <201 [facility] Comment on above: Cholesterol level, D esirable <200 mg/dLBorderline high cholesterol 200-239 mg/dLHigh cholesterol >=240 mg/dLRecommendations of the NCEP Adult Treatment Panel for the following risk-cutoff thresholds for the [place] population. Serum or plasma urea nitroge n measurement (mass/volume)Ordered By: Don Price on 10-02-2024 Urea nitrogen [Mass/Vol] 15 mg/dL 4-19 [facility] Sodium levelOrdered By: Don Price on 10-02-2024 Sodium [Moles/Vol] 140 mmol/L 133-145 [facility] TSH DL <= 0.005 mIU/L QnOrde red By: Don Price on 10-02-2024 TSH Qn 1.980 uIU/mL 0.300-4.200 [facility] Thyroid Stim Hormone (TSH)on 10-02-2024 TSH 1.980 uIU/mL Normal 0.300-4.200 [facility] Comment on above: Performed By: #### L 500.4100, L500.2500 #### [facility] [address] [place], [address] Total proteinOrdered By: Radha Price on 10-02-2024 Protein [Mass/Vol] 7.2 g/dL 5.9-8.4 [facility] Triglycerides measurementOrd ered By: Don Price on 10-02-2024 Triglyceride [Mass/Vol] 155 mg/dL <199 [facility] Comment on above: The drugs N-Acetylcy steine and Metamizole may falsely depress this assay. Normal range: <150 mg/dLBorderline High: 150-199 mg/dLHigh: 200-499 mg/dLVery High: >500 mg/dL Cerv Spine 2 or 3 Viewson Cerv Spine 2 or 3 Views [facility] [address] [place], [place] [address] Cerv Spine 2 or 3 Views MR#: [id number] Acct: [id number] Name: RAMANA BLANCO Rep #: [id number] : 1960 M 63 From: Carloz Lopes MD PCP: Dr. Don Price MD Status: REG CLI Study: Cerv Spine 2 or 3 Views Date of Exam: 09/24/24 Exam# [id number] Ordering Dr: Owen Gonzalez MD PROCEDURE: CERV [...] IMPRESSION: Cervical spine degeneration Disclaimer: Reading Location: [place] [address] CC: Dr. Owen Gonzalez MD; Dr. Don Price MD Slab Polisher: Signed Normal [facility] L3410.9992on 08-07-2024 [facility]. COMMENT Normal . [facility] Comment on above: Order Comment: [id number] UDS Result Comment: Test Ordered: [id number] Compliance Drug Analysis, Ur Specimen Comment: ToxAssure, ToxAssure FLEX or MAT drug testin Specimen Comment: -Technical component - Data analysis performed at Specimen Comment: [facility], [address] [place] [address] Specimen Comment: [id number]. [phone] Carpenter Supervisor Steve Carlton MD. Summary Report (Summary) FINAL [...] is an expected metabolite of dextromethorphan, an lzdh-mwg-kqjoabo or prescription cough suppressant. Levorphanol is a scheduled prescription medication. Dextrorphan cannot be distinguished from levorphanol by the method used for analysis. Guaifenesin PRESENT Guaifenesin may be administered as an nfks-fwn-jywhaqp or prescription drug; it may also be present as a breakdown product of methocarbamol. ===== Test Result Flag Units Ref Range Creatinine 64 mg/dL >=20 ===== Declared Medications: Medication list was not provided. ===== For clinical consultation, please call . ===== Performed at: [facility] [address] [id number] [place] Supervisor: Yaneli Mcqueen, Phone: [phone] Performed at: [facility] [id number] [place] Supervisor: Ankit Vernon PhD, Phone: [phone] Performed By: #### L 505.5000, L3410.9992 #### [facility] [address] [place], [address] Amphetamine detection with 1 000 ng/mL as cutoffOrdered By: Owen Gonzalez on 07-30-2024 Amphetamines Screen method >1000 ng/mL Ql (U) Negative < 200 ng/mL [facility] No Panel InformationOrdered By: Owen Gonzalez on 07-30-2024 Urine Buprenorphine Qualitative Negative < 200 ng/mL [facility] Urine Oxycodone Screen Negative < 100 ng/mL [facility] Quantitative urine opiates m easurementOrdered By: Owen Gonzalez on 07-30-2024 Opiates Ql (U) Positive < 300 ng/mL [facility] Comment on above: If confirmation test ing is needed, a separate order will be required to send out testing to the reference laboratory. Screening urine fentanyl tatiana surementOrdered By: Owen Gonzalez on 07-30-2024 fentaNYL Screen Ql (U) Negative [facility] Urine Drug Screen (VISTA)on 07-30-2024 AMPHETAMINES Negative Normal <1000 ng/mL [facility] Comment on above: Order Comment: UNKNO WN Performed By: #### L 505.5000, L3410.9992 #### [facility] [address] [place] [address] BARBITIURATES Negative Normal < 200 ng/mL [facility] Comment on above: Order Comment: UNKNO WN Performed By: #### L 505.5000, L3410.9992 #### [facility] [address] [facility] [address] BENZODIAZIPINE Negative Normal < 200 ng/mL [facility] Comment on above: Order Comment: UNKNO WN Performed By: #### L 505.5000, L3410.9992 #### [facility] [address] [facility] [address] BUP Ur Drug Scr Negative Normal < 200 ng/mL [facility] Comment on above: Order Comment: UNKNO WN Performed By: #### L 505.5000, L3410.9992 #### [facility] [address] [place], [address] COCAINE Negative Normal < 300 ng/mL [facility] Comment on above: Order Comment: UNKNO WN Performed By: #### L 505.5000, L3410.9992 #### [facility] [address] [facility] [address] Fentanyl Negative Normal [facility] Comment on above: Order Comment: UNKNO WN Performed By: #### L 505.5000, L3410.9992 #### [facility] [address] [place] [address] METHADONE Negative Normal < 300 ng/mL [facility] Comment on above: Order Comment: UNKNO WN Performed By: #### L 505.5000, L3410.9992 #### [facility] [address] [place] [address] OPIATES Positive Normal < 300 ng/mL [facility] Comment on above: Order Comment: UNKNO WN Result Comment: If c onfirmation testing is needed, a separate order will be required to send out testing to the reference laboratory. Performed By: #### L 505.5000, L3410.9992 #### [facility] [address] [place], [address] OXYCODONE Negative Normal < 100 ng/mL [facility] Comment on above: Order Comment: UNKNO WN Performed By: #### L 505.5000, L3410.9992 #### [facility] [address] [place] [address] PCP Negative Normal < 25 ng/mL [facility] Comment on above: Order Comment: UNKNO WN Performed By: #### L 505.5000, L3410.9992 #### [facility] [address] [place] [address] THC Negative Normal < 50 ng/mL [facility] Comment on above: Order Comment: UNKNO WN Performed By: #### L 505.5000, L3410.9992 #### [facility] [address] [place], [address] Urine benzodiazepine levelOr dered By: lexie Basali on 07-30-2024 Benzodiazepines Ql (U) Negative < 200 ng/mL [facility] Urine cocaine levelOrdered B y: Ayman Basali on 07-30-2024 Cocaine Ql (U) Negative < 300 ng/mL [facility] Urine [id number]-[id number] abinol (THC) measurementOrdered By: Owen Basali on 07-30-2024 Cannabinoids Screen Ql (U) Negative < 50 ng/mL [facility] Urine phencyclidine (PCP) de tectionOrdered By: [facility] Basali on 07-30-2024 Phencyclidine Ql (U) Negative < 25 ng/mL [facility] Serum or plasma uric acid me asurement (mass/volume)Ordered By: Don Price on 07-13-2024 Urate [Mass/Vol] 8.7 mg/dL High 3.5-7.2 [facility] Comment on above: The drugs N-Acetylcy steine and Metamizole may falsely depress this assay. Uric Acidon 07-13-2024 URIC 8.7 mg/dL High 3.5-7.2 [facility] Comment on above: Result Comment: The drugs N-Acetylcysteine and Metamizole may falsely depress this assay. Performed By: #### L 500.4100, L500.2500 #### [facility] [address] [place], [address] Basic Metabolic Profile (BMP )on 05-19-2024 BUN/CRE 16.8 RATIO Normal 10-20 [facility] Comment on above: Performed By: #### L 500.4100, L500.2500 #### [facility] [address] [place], [address] CA,Total 9.9 mg/dL Normal 8.5-10.1 [facility] Comment on above: Performed By: #### L 500.4100, L500.2500 #### [facility] [address] [place], [address] Chloride [Moles/Vol] 102 mmol/L Normal 98-107 [facility] Comment on above: Performed By: #### L 500.4100, L500.2500 #### [facility] [address] [place], [address] CO2 [Moles/Vol] 27.0 mmol/L Normal 21.0-32.0 [facility] Comment on above: Performed By: #### L 500.4100, L500.2500 #### [facility] [address] [place], [address] Creatinine [Mass/Vol] 1.19 mg/dL Normal 0.70-1.30 [facility] Comment on above: Result Comment: The validity of the calculated GFR GFRAA in patients over 70 years has not been determined. Clinical correlation is essential. Performed By: #### L 500.4100, L500.2500 #### [facility] [address] [place], [address] EST GFR - AA 80 mL/min Normal >60 [facility] Comment on above: Result Comment: Afri can Libyan GFR Calc Performed By: #### L 500.4100, L500.2500 #### [facility] [address] [place], [address] GAP 6 Normal 5-15 [facility] Comment on above: Performed By: #### L 500.4100, L500.2500 #### [facility] [address] [place], [address] GFR/1.73 sq M.predicted among non-blacks MDRD (S/P/Bld) [Vol rate/Area] 66 mL/min/{1.73_m2} Normal >60 [facility] Comment on above: Result Comment: Non- GFR Calc Performed By: #### L 500.4100, L500.2500 #### [facility] [address] [place], [address] Glucose [Mass/Vol] 93 mg/dL Normal 74-106 [facility] Comment on above: Performed By: #### L 500.4100, L500.2500 #### [facility] [address] [place], [address] Potassium [Moles/Vol] 4.1 mmol/L Normal 3.5-5.1 [facility] Comment on above: Performed By: #### L 500.4100, L500.2500 #### [facility] [address] [place], [address] Sodium [Moles/Vol] 135 mmol/L Low 136-145 [facility] Comment on above: Performed By: #### L 500.4100, L500.2500 #### [facility] [address] [place], [address] Urea nitrogen [Mass/Vol] 20 mg/dL High 7-18 [facility] Comment on above: Performed By: #### L 500.4100, L500.2500 #### [facility] [address] [place], [address] Lipid Profileon 05-19-2024 Cholesterol [Mass/Vol] 223 mg/dL High 200 [facility] Comment on above: Result Comment: <200 mg/dL Desirable 200-240 mg/dL Borderline >240 mg/dL High Risk Performed By: #### L 500.4100, L500.2500 #### [facility] [address] [place], [address] Cholesterol in HDL [Mass/Vol] 38 mg/dL Low [facility] Comment on above: Result Comment: The drugs N-Acetylcysteine and Metamizole may falsely depress this assay. Reference Range HDL <40 mg/dL Low HDL Cholesterol HDL >or= 60 mg/dL High HDL Cholesterol Performed By: #### L 500.4100, L500.2500 #### [facility] [address] [place], [address] Cholesterol in LDL [Mass/Vol] 154 mg/dL High 0-130 [facility] Comment on above: Performed By: #### L 500.4100, L500.2500 #### [facility] [address] [place], [address] Cholesterol in VLDL [Mass/Vol] 31 mg/dL Normal 5-40 [facility] Comment on above: Performed By: #### L 500.4100, L500.2500 #### [facility] [address] [place], [address] Triglyceride [Mass/Vol] 157 mg/dL Normal [facility] Comment on above: Result Comment: The drugs N-Acetylcysteine and Metamizole may falsely depress this assay. Serum Triglycerides Reference Interval Normal <150 mg/dL Borderline high 150 - 199 mg/dL High 200 - 499 mg/dL Very High > or = 500 mg/dL Performed By: #### L 500.4100, L500.2500 #### [facility] [address] [place], [address] Blood urea nitrogen (BUN)/cr eatinine ratioOrdered By: Don Price on 05-18-2024 Urea nitrogen/Creatinine [Mass ratio] 16.8 mg/mg 10-20 [facility] Carbon dioxide measurementOr dered By: Don Price on 05-18-2024 CO2 [Moles/Vol] 27.0 mmol/L 21.0-32.0 [facility] Chloride measurementOrdered By: Don Price on 05-18-2024 Chloride [Moles/Vol] 102 mmol/L 98-107 [facility] Glomerular filtration rate ( GFR) estimationOrdered By: Don Price on 05-18-2024 GFR/1.73 sq M.predicted among non-blacks MDRD (S/P/Bld) [Vol rate/Area] 66 mL/min/{1.73_m2} >60 [facility] Comment on above: Non- GFR Calc Glucose measurementOrdered B y: Don Price on 05-18-2024 Glucose [Mass/Vol] 93 mg/dL 74-106 [facility] High density lipoprotein (HD L) measurementOrdered By: Don Price on 05-18-2024 Cholesterol in HDL [Mass/Vol] 38 mg/dL Low >40 [facility] Comment on above: The drugs N-Acetylcy steine and Metamizole may falsely depress this assay. Reference Range HDL <40 mg/dL Low HDL Cholesterol HDL >or= 60 mg/dL High HDL Cholesterol Low density lipoprotein (LDL ) cholesterol measurementOrdered By: Don Price on 05-18-2024 Cholesterol in LDL [Mass/Vol] 154 mg/dL High 0-130 [facility] Potassium measurementOrdered By: Don Price on 05-18-2024 Potassium [Moles/Vol] 4.1 mmol/L 3.5-5.1 [facility] Serum anion gap measurementO rdered By: Don Price on 05-18-2024 Anion gap [Moles/Vol] 6 mmol/L 5-15 [facility] Serum or plasma calcium nichol urement (mass/volume)Ordered By: Don Price on 05-18-2024 Calcium [Mass/Vol] 9.9 mg/dL 8.5-10.1 [facility] Serum or plasma cholesterol measurement (mass/volume)Ordered By: Don Price on 05-18-2024 Cholesterol [Mass/Vol] 223 mg/dL High <200 [facility] Comment on above: <200 mg/dL Desirable 200-240 mg/dL Borderline >240 mg/dL High Risk Serum or plasma creatinine m easurement (mass/volume)Ordered By: Don Price on 05-18-2024 Creatinine [Mass/Vol] 1.19 mg/dL 0.70-1.30 [facility] Comment on above: The validity of the calculated GFR & GFRAA in patients over 70 years has not been determined. Clinical correlation is essential. Serum or plasma urea nitroge n measurement (mass/volume)Ordered By: Don Price on 05-18-2024 Urea nitrogen [Mass/Vol] 20 mg/dL High 7-18 [facility] Sodium levelOrdered By: Don Price on 05-18-2024 Sodium [Moles/Vol] 135 mmol/L Low 136-145 [facility] Triglycerides measurementOrd ered By: Don Price on 05-18-2024 Triglyceride [Mass/Vol] 157 mg/dL <199 [facility] Comment on above: The drugs N-Acetylcy steine and Metamizole may falsely depress this assay.Serum Triglycerides Reference Interval Normal <150 mg/dL Borderline high 150 - 199 mg/dL High 200 - 499 mg/dL Very High > or = 500 mg/dL Very low density lipoprotein (VLDL) cholesterol measurementOrdered By: Don Price on 05-18-2024 Very low density lipoprotein (VLDL) cholesterol measurement 31 mg/dL 5-40 [facility] Urgent Care Visit Reporton 1 04-28-2023 Urgent Care Visit Report [facility] [address], [address] [place] [address] OFFICE VISIT Date of Service: 02/26/24 MR#: [id number] Acct: [id number] Name: RAMANA BLANCO Rep #: [id number] : 1960 Provider: JOSE Khan Age/Sex: 63/M Location: [facility] Status: Signed Intake Vital Signs 05/09/22 09:19 [...] PAIN/ST Chief Complaint: right ear pain/ ST [employer] Required: No Is patient in pain?: Yes [...] habitus Orientation: alert, awake and oriented x3 [facility] Head: normal to inspection Ears: hearing [...] Attitude: cooperative (more content not included)... Normal [facility] Basophil percentageOrdered B y: Dr. Price on 02-27-2022 Chloride [Moles/Vol] 104 mmol/L 98-107 [facility] Cholesterol [Mass/Vol] 229 mg/dL <200 [facility] Comment on above: <200 mg/dL Desirable 200-240 mg/dL Borderline >240 mg/dL High Risk Glucose [Mass/Vol] 89 mg/dL 74-106 [facility] Potassium [Moles/Vol] 4.2 mmol/L 3.5-5.1 [facility] Sodium [Moles/Vol] 141 mmol/L 136-145 [facility] Triglyceride [Mass/Vol] 169 mg/dL <199 [facility] Comment on above: The drugs N-Acetylcy steine and Metamizole may falsely depress this assay.Serum Triglycerides Reference Interval Normal <150 mg/dL Borderline high 150 - 199 mg/dL High 200 - 499 mg/dL Very High > or = 500 mg/dL Erythrocyte sedimentation ra teOrdered By: Dr. Price on 02-27-2022 ESR (Bld) [Velocity] 9 mm/h 0-20 [facility] - Chemistry and C hemistry - challengeOrdered By: Dr. Price on 02-27-2022 CO2 [Moles/Vol] 29.0 mmol/L 21.0-32.0 [facility] Urea nitrogen/Creatinine [Mass ratio] 12.3 mg/mg 10-20 [facility] No Panel InformationOrdered By: Dr. Price on 02-27-2022 Anti-Nuclear Antibody Screen Positive Negative [facility] Comment on above: Performed at: [address] Director: Ankit Venron PhD, Phone: [phone] Estimated GFR (MDRD) Amer 92 mL/min >60 [facility] Comment on above: GFR Calc Estimated GFR (MDRD) Non-Af Amer 76 mL/min >60 [facility] Comment on above: Non- GFR Calc Serum or plasma calcium nichol urement (mass/volume)Ordered By: Dr. Price on 02-27-2022 Calcium [Mass/Vol] 9.1 mg/dL 8.5-10.1 [facility] Serum or plasma cholesterol in HDL measurement (mass/volume)Ordered By: Dr. Price on 02-27-2022 Cholesterol in HDL [Mass/Vol] 33 mg/dL >40 [facility] Comment on above: The drugs N-Acetylcy steine and Metamizole may falsely depress this assay. Reference Range HDL <40 mg/dL Low HDL Cholesterol HDL >or= 60 mg/dL High HDL Cholesterol Serum or plasma cholesterol in VLDL measurement (mass/volume)Ordered By: Dr. Price on 02-27-2022 Cholesterol in VLDL [Mass/Vol] 34 mg/dL 5-40 [facility] Serum or plasma creatinine m easurement (mass/volume)Ordered By: Dr. Price on 02-27-2022 Creatinine [Mass/Vol] 1.06 mg/dL 0.70-1.30 [facility] Comment on above: The validity of the calculated GFR & GFRAA in patients over 70 years has not been determined. Clinical correlation is essential. Serum or plasma low density lipoprotein (LDL) cholesterol measurement (mass/volume)Ordered By: Dr. Price on 02-27-2022 Cholesterol in LDL [Mass/Vol] 162 mg/dL 0-130 [facility] Serum or plasma urea nitroge n measurement (mass/volume)Ordered By: Dr. Price on 02-27-2022 Urea nitrogen [Mass/Vol] 13 mg/dL 7-18 [facility] Thin prep Papanicolaou smear with manual screeningOrdered By: Dr. Price on 02-27-2022 Thin prep Papanicolaou smear with manual screening 8 5-15 [facility] Absolute lymphocyte counton 10-05-2021 Lymphocytes Auto (Unsp spec) [#/Vol] 1.90 10*3/uL 0.83-4.51 [facility] Work Phone: Basophil percentageon 2021 Basophils/100 WBC (Bld) 0.8 % 0-1 [facility] Work Phone: Bilirubin [Mass/Vol] 0.50 mg/dL 0.20-1.00 [facility] Work Phone: Comment on above: For patients on eltr ombopag therapy, use of Dimension Mcdaniels TBIL is not recommended. Chloride [Moles/Vol] 107 mmol/L 98-107 [facility] Work Phone: Eosinophils/100 WBC (Bld) 4.9 % 0-5 [facility] Work Phone: Glucose [Mass/Vol] 78 mg/dL 74-106 [facility] Work Phone: Neutrophils (Bld) [#/Vol] 5.9 10*3/uL 2.0-7.7 [facility] Work Phone: Neutrophils/100 WBC (Bld) 64.8 % 47-70 [facility] Work Phone: Potassium [Moles/Vol] 4.1 mmol/L 3.5-5.1 [facility] Work Phone: Protein [Mass/Vol] 7.1 g/dL 6.4-8.2 [facility] Work Phone: Sodium [Moles/Vol] 138 mmol/L 136-145 [facility] Work Phone: WBC (Bld) [#/Vol] 9.2 10*3/uL 4.4-11.0 [facility] Work Phone: Blood erythrocytes count (nu mber/volume)on 10-05-2021 RBC (Bld) [#/Vol] 4.67 10*6/uL 4.6-6.2 [facility]: Blood hemoglobin measurement (mass/volume)on 10-05-2021 Hemoglobin (Bld) [Mass/Vol] 14.4 g/dL 13.0-16.5 [facility] Work Phone: Blood lymphocytes/100 leukoc yteson 10-05-2021 Lymphocytes/100 WBC (Bld) 20.7 % 19-41 [facility] Work Phone: Blood monocytes/100 leukocyt eson 10-05-2021 Monocytes/100 WBC (Bld) 7.6 % 0-10 [facility] Work Phone: Blood platelet mean volumeon 10-05-2021 Platelet mean volume (Bld) [Entitic vol] 11.2 fL 6.2-12.0 [facility] Work Phone: Determination of erythrocyte mean corpuscular volume (MCV)on 10-05-2021 MCV (RBC) [Entitic vol] 91.0 fL 80-94 [facility] Work Phone: Hematocrit Auto (Bld) [Volum e fraction]on 10-05-2021 Hematocrit (Bld) [Volume fraction] 42.5 % 40-54 [facility] Work Phone: Laboratory - Chemistry and C hemistry - challengeon 10-05-2021 ALP [Catalytic activity/Vol] 71 U/L 45-117 [facility] Work Phone: [phone] ALT [Catalytic activity/Vol] 44 U/L 16-61 [facility] Work Phone: [phone] CO2 [Moles/Vol] 27.0 mmol/L 21.0-32.0 [facility] Work Phone: [phone] Globulin (S) [Mass/Vol] 3.0 g/dL 2.2-4.2 [facility] Work Phone: [phone] Urea nitrogen/Creatinine [Mass ratio] 17.3 mg/mg 10-20 [facility] Work Phone: [phone] Laboratory - Hematology and Cell countson 10-05-2021 Erythrocyte distribution width (RBC) [Entitic vol] 43.8 fL 35.1-43.9 [facility] Work Phone: [phone] Erythrocyte distribution width (RBC) [Ratio] 13.2 % 11.6-14.6 [facility] Work Phone: [phone] Immature granulocytes/100 WBC (Bld) 1.200 % 0.0-0.9 [facility] Work Phone: [phone] Comment on above: IG% - Immature Granu locytes (promyelocytes, myelocytes and metamyelocytes) > 1% indicates that a LEFT SHIFT is Present. MCH (RBC) [Entitic mass] 30.8 pg 27.0-32.0 [facility] Work Phone: [phone] Nucleated RBC/100 WBC (Bld) [Ratio] 0 % 0-5 [facility] Work Phone: [phone] MCHC Auto (RBC) [Mass/Vol]on 10-05-2021 MCHC (RBC) [Mass/Vol] 33.9 g/dL 32-36 [facility] Work Phone: [phone] Panel Informationon 10-05 Estimated GFR (MDRD) Amer 88 mL/min >60 [facility] Work Phone: [phone] Comment on above: GFR Calc Estimated GFR (MDRD) Non-Af Amer 73 mL/min >60 [facility] Work Phone: Comment on above: Non- GFR Calc Platelets bldon 10-05-2021 Platelets (Bld) [#/Vol] 201 10*3/uL 150-450 [facility] Work Phone: Serum or plasma albumin nichol urement (mass/volume)on 10-05-2021 Albumin [Mass/Vol] 4.1 g/dL 3.2-5.0 [facility] Work Phone: Serum or plasma albumin/glob ulin mass ratioon 10-05-2021 Albumin/Globulin [Mass ratio] 1.4 {ratio} 0.9-2.4 [facility] Work Phone: Serum or plasma calcium nichol urement (mass/volume)on 10-05-2021 Calcium [Mass/Vol] 9.3 mg/dL 8.5-10.1 [facility] Work Phone: Serum or plasma creatinine m easurement (mass/volume)on 10-05-2021 Creatinine [Mass/Vol] 1.10 mg/dL 0.70-1.30 [facility] Work Phone: Comment on above: The validity of the calculated GFR & GFRAA in patients over 70 years has not been determined. Clinical correlation is essential. Serum or plasma urea nitroge n measurement (mass/volume)on 10-05-2021 Urea nitrogen [Mass/Vol] 19 mg/dL 7-18 [facility] Work Phone: Thin prep Papanicolaou smear with manual screeningon 10-05-2021 Thin prep Papanicolaou smear with manual screening 25 U/L 15-37 [facility] Work Phone: [phone] Thin prep Papanicolaou smear with manual screening 4 5-15 [facility] Work Phone: Absolute lymphocyte counton 07-07-2021 Lymphocytes Auto (Unsp spec) [#/Vol] 1.37 10*3/uL 0.83-4.51 [facility] Work Phone: Basophil percentageon 2021 Basophils/100 WBC (Bld) 0.8 % 0-1 [facility] Work Phone: Bilirubin [Mass/Vol] 0.50 mg/dL 0.20-1.00 [facility] Work Phone: Comment on above: For patients on eltr ombopag therapy, use of Dimension Mcdaniels TBIL is not recommended. Chloride [Moles/Vol] 107 mmol/L 98-107 [facility] Work Phone: Eosinophils/100 WBC (Bld) 3.8 % 0-5 [facility] Work Phone: Glucose [Mass/Vol] 94 mg/dL 74-106 [facility] Work Phone: Neutrophils (Bld) [#/Vol] 4.9 10*3/uL 2.0-7.7 [facility] Work Phone: Neutrophils/100 WBC (Bld) 67.9 % 47-70 [facility] Work Phone: Potassium [Moles/Vol] 4.3 mmol/L 3.5-5.1 [facility] Work Phone: Protein [Mass/Vol] 7.3 g/dL 6.4-8.2 [facility] Work Phone: Sodium [Moles/Vol] 138 mmol/L 136-145 [facility] Work Phone: [phone] WBC (Bld) [#/Vol] 7.2 10*3/uL 4.4-11.0 [facility] Work Phone: Bilirubin Test strip Ql (U)o n 07-07-2021 Bilirubin Ql (U) Negative Negative [facility] Work Phone: Blood erythrocytes count (nu mber/volume)on 07-07-2021 RBC (Bld) [#/Vol] 5.06 10*6/uL 4.6-6.2 [facility] Work Phone: Blood hemoglobin measurement (mass/volume)on 07-07-2021 Hemoglobin (Bld) [Mass/Vol] 15.4 g/dL 13.0-16.5 [facility] Work Phone: Blood lymphocytes/100 leukoc yteson 07-07-2021 Lymphocytes/100 WBC (Bld) 19.1 % 19-41 [facility] Work Phone: Blood monocytes/100 leukocyt eson 07-07-2021 Monocytes/100 WBC (Bld) 7.7 % 0-10 [facility] Work Phone: Blood platelet mean volumeon 07-07-2021 Platelet mean volume (Bld) [Entitic vol] 10.4 fL 6.2-12.0 [facility] Work Phone: Determination of erythrocyte mean corpuscular volume (MCV)on 07-07-2021 MCV (RBC) [Entitic vol] 92.3 fL 80-94 [facility] Work Phone: Hematocrit Auto (Bld) [Volum e fraction]on 07-07-2021 Hematocrit (Bld) [Volume fraction] 46.7 % 40-54 [facility] Work Phone: [phone] INR in Blood by Coagulation assayon 07-07-2021 INR Coag (Bld) [Relative time] 1.0 {INR} [facility] Work Phone: Ketones Test strip Ql (U)on 07-07-2021 Ketones Ql (U) Negative Negative [facility] Work Phone: Laboratory - Chemistry and C hemistry - challengeon 07-07-2021 ALP [Catalytic activity/Vol] 70 U/L 45-117 [facility] Work Phone: ALT [Catalytic activity/Vol] 48 U/L 16-61 [facility] Work Phone: CO2 [Moles/Vol] 27.0 mmol/L 21.0-32.0 [facility] Work Phone: Globulin (S) [Mass/Vol] 3.3 g/dL 2.2-4.2 [facility] Work Phone: Urea nitrogen/Creatinine [Mass ratio] 16.0 mg/mg 10-20 [facility] Work Phone: Laboratory - Coagulationon 0 07-07-2021 aPTT Coag (Bld) [Time] 30.2 s 24.1-36.2 ysabel [facility] Work Phone: [phone] PT Coag (PPP) [Time] 12.7 s 11.7-14.[address] [facility] Work Phone: [phone] Laboratory - Hematology and Cell countson 07-07-2021 Erythrocyte distribution width (RBC) [Entitic vol] 42.6 fL 35.1-43.9 [facility] Work Phone: [phone] Erythrocyte distribution width (RBC) [Ratio] 12.8 % 11.6-14.6 [facility] Work Phone: [phone] Immature granulocytes/100 WBC (Bld) 0.700 % 0.0-0.9 [facility] Work Phone: Comment on above: IG% - Immature Granu locytes (promyelocytes, myelocytes and metamyelocytes) > 1% indicates that a LEFT SHIFT is Present. MCH (RBC) [Entitic mass] 30.4 pg 27.0-32.0 [facility] Work Phone: Nucleated RBC/100 WBC (Bld) [Ratio] 0 % 0-5 [facility] Work Phone: [phone] Laboratory - Miscellaneous t estson 07-07-2021 Service comment (Unsp spec) [Interp] Comment . [facility] Work Phone: Comment on above: Results do not indic ate the presence of a LupusAnticoagulant: abnormal high screening results (PTT-LA,dRVVT, mixing studies), may be due to medication (heparin,warfarin, aspirin), Factor inhibitors, anticardiolipinantibodies, or poor specimen integrity.Performed at: [facility] [address] [id number] Director: Rj Carmona MD, Phone: [phone] MCHC Auto (RBC) [Mass/Vol]on 07-07-2021 MCHC (RBC) [Mass/Vol] 33.0 g/dL 32-36 [facility] Work Phone: [phone] Nitrite Test strip Ql (U)on 07-07-2021 Nitrite Ql (U) Negative Negative [facility] Work Phone: No Panel Informationon 07-07 Estimated GFR (MDRD) Amer 92 mL/min >60 [facility] Work Phone: Comment on above: GFR Calc Estimated GFR (MDRD) Non-Af Amer 76 mL/min >60 [facility] Work Phone: Comment on above: Non- GFR Calc Hepatitis B Surface Antigen Non-Reactive Nonreactive [facility] Work Phone: [phone] Hepatitis C Antibody Non-Reactive Nonreactive [facility] Work Phone: Comment on above: Non Reactive: < 0.8 Equivocal: >/= 0.8 to < 1.0 Reactive: >/= 1.0The CDC recommends that a reactive/equivocal HCV antibody result be followed up by the HCV Nucleic Acid Amplificationtest (770624) Miscellaneous Test Comment MAILED SPECIMEN [facility] Work Phone: Platelets bldon 07-07-2021 Platelets (Bld) [#/Vol] 203 10*3/uL 150-450 [facility] Work Phone: [phone] Protein Test strip Ql (U)on 07-07-2021 Protein Ql (U) Negative Negative [facility] Work Phone: [phone] Serum hepatitis B virus surf noe antibody IgG detectionon 07-07-2021 HBV surface IgG Ql (S) Non-Reactive [facility] Work Phone: Comment on above: Non Reactive: Incons istent with immunity less than <10 mIU/mL Reactive: Consistent with immunity greater than or equal to 10 mIU/mL Serum or plasma albumin nichol urement (mass/volume)on 07-07-2021 Albumin [Mass/Vol] 4.0 g/dL 3.2-5.0 [facility] Work Phone: [phone] Serum or plasma albumin/glob ulin mass ratioon 07-07-2021 Albumin/Globulin [Mass ratio] 1.2 {ratio} 0.9-2.4 [facility] Work Phone: [phone] Serum or plasma calcium nichol urement (mass/volume)on 07-07-2021 Calcium [Mass/Vol] 8.9 mg/dL 8.5-10.1 [facility] Work Phone: [phone] Serum or plasma creatinine m easurement (mass/volume)on 07-07-2021 Creatinine [Mass/Vol] 1.06 mg/dL 0.70-1.30 [facility] Work Phone: Comment on above: The validity of the calculated GFR & GFRAA in patients over 70 years has not been determined. Clinical correlation is essential. Serum or plasma urea nitroge n measurement (mass/volume)on 07-07-2021 Urea nitrogen [Mass/Vol] 17 mg/dL 7-18 [facility] Work Phone: [phone] Serum or plasma uric acid me asurement (mass/volume)on 07-07-2021 Urate [Mass/Vol] 9.4 mg/dL 3.5-7.2 [facility] Work Phone: [phone] Comment on above: The drugs N-Acetylcy steine and Metamizole may falsely depress this assay. Thin prep Papanicolaou smear with manual screeningon 07-07-2021 Thin prep Papanicolaou smear with manual screening 24 U/L 15-37 [facility] Work Phone: [phone] Thin prep Papanicolaou smear with manual screening 4 5-15 [facility] Work Phone: [phone] Thin prep Papanicolaou smear with manual screening See comment [facility] Work Phone: [phone] Comment on above: TEST RESULT LIMITSLu pus Anticoagulant Comp Dilute Prothrombin Time(dPT) 40.5 sec 0.0-47.6 dPT Confirm Ratio 1.13 Ratio 0.00-1.34 Thrombin Time 18.4 sec 0.0-23.0 Lupus Anticoagulant Reflex PTT-LA 41.1 sec 0.0-51.9 dRVVT 46.1 sec 0.0-47.0 Lupus Reflex Interpretation Comment: No lupus anticoagulant was detected. ___ TESTING PERFORMED AT [facility]. ORIGINAL REPORT ON FILE IN LAB CONTAINS ADDITIONAL TEST SITE INFORMATION. Thin prep Papanicolaou smear with manual screening Not Reportable [facility] Work Phone: Thrombin time in platelet po or plasmaon 07-07-2021 Thrombin time Coag (PPP) [Time] 17.6 sec [facility] Work Phone: Thrombin time Coag (PPP) [Time] Not Reportable [facility] Work Phone: Urine blood detectionon 06-23 RBC Ql (U) Negative Negative [facility] Work Phone: Urine clarityon 07-07-2021 Clarity (U) Clear Clear [facility] Work Phone: Urine color determinationon 07-07-2021 Color (U) Yellow Yellow [facility] Work Phone: Urine creatinine measurement (mass/volume)on 07-07-2021 Creatinine (U) [Mass/Vol] 35.20 mg/dL NO RANGE EST. [facility] Work Phone: Urine glucose detectionon Glucose Ql (U) Normal mg/dl Normal [facility] Work Phone: Urine leukocyte esterase det ection by dipstickon 07-07-2021 Leukocyte esterase Test strip Ql (U) Negative Negative [facility] Work Phone: Urine pHon 07-07-2021 pH (U) 6.5 [pH] 5.0 - 8.0 [facility] Work Phone: Urine protein measurement (m ass/volume)on 07-07-2021 Protein (U) [Mass/Vol] mg/dL 0.0-11.8 [facility] Work Phone: Urine protein/creatinine mas s ratioon 07-07-2021 Protein/Creatinine (U) [Mass ratio] TNP [facility] Work Phone: Comment on above: Test not performed Urine specific gravity measu rementon 07-07-2021 Specific gravity (U) [Rel density] 1.010 1.002-1.030 [facility] Work Phone: [phone] Urobilinogen Auto test strip Ql (U)on 07-07-2021 Urobilinogen Ql (U) Normal mg/dl Normal [facility] Work Phone: Erythrocyte sedimentation ra raj 04-21-2021 ESR (Bld) [Velocity] 12 mm/h 0-20 [facility] Work Phone: No Panel Informationon 04-21 Anti-Nuclear Antibody Screen Positive Negative [facility] Work Phone: Comment on above: Performed at: [address] [id number] Director: Ankit Vernon PhD, Phone: [phone] C-Reactive Protein High Sensitivity 1.14 mg/L [facility] Work Phone: Comment on above: Low Relative Risk of CVD <1.0 mg/L Average Relative Risk of CVD 1.0 - 3.0 mg/L High Relative Risk of CVD >3.0 mg/L Serum or plasma C reactive p rotein measurement (mass/volume)on 04-21-2021 CRP [Mass/Vol] mg/L 0.0-3.0 [facility] Work Phone: Comment on above: C-Reactive Protein ( CRP) provides useful information for thediagnosis, therapy and monitoring of inflammatory processesand associated diseases. For the evaluation of Relative Riskfor Cardiovascular Disease, a High Sensitivity CRP (HSCRP)should be ordered. 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 Normal [facility] Ivan Cult/Smr H,S,Non 2020 Ivan Cult/Smr H,S,N Sp. Request/Comment: - Specimen received in sterile container. Smear Result - No fungus seen. Culture Result - No Fungus isolated after 31 days Normal [facility] Comment on above: Performed By: #### F HSNS #### [facility] [address] [address] Vital Signs Date Time Vital Sign Value Performing Clinician Faci lity 05-09-2022 09:19-0500 Body height 177.[address] Don Price Work Phone: [facility] 05-09-2022 09:19-0500 Body mass index (BMI) [Ratio] 33.7 kg/m2 Dr. Don Price Work Phone: [facility] 05-09-2022 09:19-0500 Body weight 106.[address] Don Price Work Phone: [facility] Encounters Encounter Date Encounter Type Care Provider Facility Start: 11-06-2024 End: 11-06-[address] Don Price MD Work Phone: -Cat Scan [facility] Start: 11-06-2024 End: 11-06-[address] Don Price MD -Cat Scan [facility] Work Phone: Start: 11-06-2024 End: 11-06-2024 ambulatory Don Price Facility:[facility] Start: 10-02-2024 End: 10-02-[address] Don Price MD Work Phone: -[facility] Start: 10-02-2024 End: 10-02-[address] Don Price MD -[facility] Work Phone: Start: 10-02-2024 End: 10-02-2024 ambulatory Don Price Facility:[facility] Start: 09-24-2024 End: 09-24-[address] Don Price MD Work Phone: -Radiology [facility] Start: 09-24-2024 End: 09-24-[address] Owen Gonzalez MD -Radiology [facility] Work Phone: Start: 09-24-2024 End: 09-24-[facility] Start: 07-30-2024 End: 07-30-[address] Don Price MD Work Phone: [facility] Work Phone: Start: 07-30-2024 End: 07-30-[address] Owen Gonzalez MD -Laboratory Work Phone: Start: 07-30-2024 End: 07-30-2024 ambulatory Owen Gonzalez Facility:[facility] Start: 07-13-2024 End: 07-13-[address] Don Price MD -Laboratory, [place] Work Phone: Start: 07-13-2024 End: 07-13-2024 ambulatory Don Price Facility:[facility] Start: 05-18-2024 End: 05-18-[address] Don Price MD -Laboratory, [place] Work Phone: Start: 05-18-2024 End: 05-18-2024 ambulatory Don Price Facility:[facility] Start: 02-26-2024 End: 02-26-2024 ambulatory Taran HERNANDEZ Facility:[facility] Start: 02-28-2023 End: 02-28-2023 ambulatory [facility] Work Phone: Start: 02-28-2023 End: 02-28-2023 [facility] Start: 05-30-2022 End: 05-30-[address] Don Price Work Phone: [facility] Work Phone: Start: 05-30-2022 End: 05-30-[address] [facility] Start: 05-09-2022 End: 05-09-[address] Don Price Work Phone: [facility] Start: 04-27-2022 End: 04-27-[address] Don Price Work Phone: [facility] Start: 02-27-2022 End: 02-27-2022 ambulatory [facility] Work Phone: Start: 02-27-2022 End: 02-27-2022 Patient encounter procedure [facility] Start: 10-05-2021 End: 10-05-2021 Patient encounter procedure [facility] Start: 07-07-2021 End: 07-07-2021 Patient encounter procedure [facility] Start: 04-21-2021 End: 04-21-2021 Patient encounter procedure [facility] Procedures Date Procedure Procedure Detail Performing Clinician Start: 11-06-[address] Don izquierdo MD Work Phone: Start: 09-24-2024 X-ray of cervical spine Dr. Don Price MD Work Phone: Start: 07-30-2024 Methadone measuremen t, urine Dr. Don Price MD Work Phone: Start: 07-30-[address] Don izquierdo MD Work Phone: Comment on above: Test Ordered: [id number] [facility] Drug Analysis, UrSpecimen Comment: ToxAssure, ToxAssure FLEX or MAT drug [id number] Comment: -Technical component - Data analysis performed atSpecimen Comment: [facility] [place], [address], [place], [place]: [id number]. [phone] Carpenter Supervisor Steve Carlton MD.Summary Report (Summary) FINAL MX [...] is an expected metabolite of dextromethorphan, an eegy-qtc-kbamjgs or prescription cough suppressant. Levorphanol is a scheduled prescription medication. Dextrorphan cannot be distinguished from levorphanol by the method used for analysis. Guaifenesin PRESENT Guaifenesin may be administered as an sfpk-bxo-zkfaudn or prescription drug; it may also be present as a breakdown product of methocarbamol. Test Result Flag Units Ref Range Creatinine 64 mg/dL >=20 =====Declared Medications: Medication list was not provided. For clinical consultation, please call . Performed at: [employer] [address] [id number] Director: Yaneli Lanier [employer], Phone: [phone] at: [facility] [place], [place] [id number] Director: Ankit Vernon PhD, Phone: [phone] Start: 05-18-2024 Measurement of renal function Dr. Don Priec MD Work Phone: Comment on above: GFR [...] Care Activity Detail Author Start: 07-30-2024 Procedure [facility] Start: 05-09-2022 Patient referral [facility] Work Phone: Nuclear Ab [Presence] in Serum [facility] Work Phone: Patient referral [facility] Work Phone: Payers Date Payer Category Payer Self-pay [id number] 2020 Unknown [id number] Unknown [id number] 2.16.8 [id number] Unknown [id number] 2.16.8 [id number] Unknown [id number] 2.16.8 [id number] Unknown [id number] 2.16.8 [id number] Unknown [id number] 2.16.8 [id number] Unknown [id number] 2.16.8 [id number] Unknown [id number] 2.16.8 [id number] Social History Date Type Detail Facility Start: 09-13-2020 End: 05-09-2022 Tobacco smoking status NHIS Unknown if ever smoked [facility] Start: 1960 Sex Assigned At Male W [facility] Start: 05-09-2022 Tobacco smoking stat us WYIS Smokes tobacco daily (finding) [facility] Radiology Diagnostic study note 11-09-2024 Note Date & Type Note Facility 11-09-2024 Radiology Diagnostic study note [facility] [address] [place], [place] [id number] Low Dose CT Lung Screening MR#: [id number] Acct: [id number] Name: RAMANA BLANCO Rep #: [id number] : 1960 M 63 From: Izaiah Salinas MD PCP: Dr. Don Price MD Status: REG C DAVY Study:Low Dose CT Lung Screening Date of Exam : 11/06/24 Exam# [id number] Ordering Dr: Don Price MD PROCEDURE: LOW DOSE CT LUNG SCREENING 11/06/2024 REASON FOR EXAM: SMOKER Patient has smoked 1 pack per day for 16 years. TECHNIQUE: LOW DOSE CT LUNG SCREENING Coronal and Sagittal reconstruction series were provided. One or more dose reduction techniques were used (e.g., Automated exposure control, adjustment of the mA and/or kV according to patient size, use of iterative reconstruction technique). REFERENCE LINK: [employer] Lung-RADS RADIATION DOSE SUMMARY: CTDlvol: 3.02 mGy DLP: 113.62 mGycm COMPARISON: None FINDINGS: PULMONARY NODULES: (Only nodules >3mm are reported) Nodules described below are on series 1 unless otherwise specified. Pulmonary Nodules: No suspicious nodules are seen. Hardware:None Lymph Nodes:No suspicious lymph nodes are present. Heart and Vasculature:The heart is nonenlarged. Atherosclerotic plaque formation of the aortic arch. Coronary Artery Calcifications: Present Lungs and Airways: Mild emphysematous changes are present. Pleura:Unremarkable Upper Abdomen:Unremarkable Bones:Degenerative changes of the thoracic spine. CT/Low Dose CT Lung Screening IMPRESSION: No suspicious pulmonary nodule seen. Coronary artery calcification (CAC) is is absent Lung-RADS Category: 2 BENIGN (BASED ON IMAGING FEATURES OR INDOLENT BEHAVIOR). RECOMMEND 12-MONTH SCREENING LDCT. Other Significant Findings: Reading Location: [facility] CC: Dr. Don Price MD ~ Slab Polisher: Signed [facility] Radiology Diagnostic study note 09-25-2024 Note Date & Type Note Facility 09-25-2024 Radiology Diagnostic study note [facility] [address] [place], [place] [address] Cerv Spine 2 or 3 Views MR#: [id number] Acct: [id number] Name: RAMANA BLANCO Rep #: [id number] : 1960 M 63 From: Betzaida Lopes MD PCP: Dr. Don Price MD Status: REG C LI Study:Cerv Spine 2 or 3 Views Date of Exam: 09/24/24 Exam# [id number] Ordering Dr: Abhijeet Gonzalez MD PROCEDURE: CERV [...] IMPRESSION: Cervical spine degeneration Disclaimer: Reading Location: [place] [address] CC: Dr. Owen Gonzalez MD; Dr. Don Price MD ~ Slab Polisher: Signed [facility] Progress note 07-01-2020 Note Date & Type Note Facility 07-01-2020 Note HNO ID: [id number] Author: Maria E Witt Service: ? Author [...] does have pa (more content not included)... [facility] Progress note 07-01-2020 Note Date & Type Note Facility 07-01-2020 Note HNO ID: [id number] Author: Marisabel Gimenez Ma Service: ? Author Type: ? Type: [...] with: Right Great Toe - New, Pain [facility] Evaluation note Note Date & Type Note Facility Evaluation note No assessment information availa ble [facility] Work Phone: Evaluation note Note Date & Type Note Facility Evaluation note Diagnosis Onset Date DDD (degenerative disc disease), lumbar acute S/P lumbar laminectomy acute [facility] Work Phone: Reason for referral (narrative) Note Date & Type Note Facility Reason for referral (narrative) No reason for referral information available [facility] Work Phone: Summary Purpose Family History No Family History Records FoundNo Family History Records Found Advance Directives No Advanced Directives Records Found Advance Directive Response Recorded Date/ Time Living Will No September 13, 2020 7:41am Power of Chief Meteorologist No September 13 7:41am Advance Directive Response Recorded Date/ Time Living Will No September 13, 2020 6:41am Power of Chief Meteorologist No September 13 6:41am Chief Complaint and Reason for Visit Chief Complaint SWELLING OF BOTH MENDOZA DS, KNEE PAIN [facility]- PAIN- COPY PCP Chief Complaint AVISE 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 Gerald Sorensen DO Attending Provider Active Team Status: Inactive [...] October 02, 2024 End: October 02, 2024 Team Status: Active Member Role/Relationship Status [...] 2024 End: October 02, 2024 Dr. Don Pirce MD Attending Provider Active Start: October 02, 2024 End: October 02, 2024 Dr. Don Price MD Referring Provider Active Start: October 02, 2024 End: October 02, 2024 Team Status: Inactive Member Role/Relationship Status Dates Dr. Don Price MD Primary Care Provider Active Start: November 06, 2024 End: November 06, 2024 Dr. Don Price MD Attending Provider Active Start: November 06, 2024 End: November 06, 2024 Dr. Don Price MD Referring Provider Active Start: November 06, 2024 End: November 06, 2024 FOR RECORDS PERTAINING TO PATIENTS WHO [...] BE BASED ON THE PRIMARY CLINICAL RECORDS. [facility] [employer] provides no warranty or guarantee of the accuracy or completeness of information in this document.
== END | disposition home or self-care (01) ==
LOC: RAD 16:55
PROVIDERS: PCP Family Medicine; Referring Provider Anesthesiology Pain Medicine; Visit Provider Anesthesiology Pain Medicine
DX: M17.0 Bilateral primary osteoarthritis of knee (principal)
CPT/HCPCS: 73564